=== PATIENT | male | born 1955 | race Caucasian/White ===

== ENCOUNTER → 2018-12-21 | Outpatient (CLI) | payer OTHER | LOC: M.WC 05:10 | DX: T86.821 Skin graft (allograft) (autograft) failure (principal); E11.622 Type 2 diabetes mellitus with other skin ulcer; L97.815 Non-pressure chronic ulcer of other part of right lower leg with muscle involvement without evidence of necrosis; E11.51 Type 2 diabetes mellitus with diabetic peripheral angiopathy without gangrene; I13.0 Hypertensive heart and chronic kidney disease with heart failure and stage 1 through stage 4 chronic kidney disease, or unspecified chronic kidney disease; I50.9 Heart failure, unspecified; N18.9 Chronic kidney disease, unspecified; E78.5 Hyperlipidemia, unspecified; E66.9 Obesity, unspecified; I48.91 Unspecified atrial fibrillation; F32.9 Major depressive disorder, single episode, unspecified; Z68.31 Body mass index [BMI] 31.0-31.9, adult; Z89.511 Acquired absence of right leg below knee; Z89.512 Acquired absence of left leg below knee; Z87.891 Personal history of nicotine dependence; Y83.2 Surgical operation with anastomosis, bypass or graft as the cause of abnormal reaction of the patient, or of later complication, without mention of misadventure at the time of the procedure ==

== ENCOUNTER → 2018-12-28 | Outpatient (CLI) | payer OTHER | LOC: M.WC 05:08 | DX: T86.821 Skin graft (allograft) (autograft) failure (principal); E11.622 Type 2 diabetes mellitus with other skin ulcer; L97.812 Non-pressure chronic ulcer of other part of right lower leg with fat layer exposed; E11.51 Type 2 diabetes mellitus with diabetic peripheral angiopathy without gangrene; E11.22 Type 2 diabetes mellitus with diabetic chronic kidney disease; I13.0 Hypertensive heart and chronic kidney disease with heart failure and stage 1 through stage 4 chronic kidney disease, or unspecified chronic kidney disease; I50.9 Heart failure, unspecified; N18.9 Chronic kidney disease, unspecified; E66.9 Obesity, unspecified; E78.5 Hyperlipidemia, unspecified; I48.91 Unspecified atrial fibrillation; Z87.891 Personal history of nicotine dependence; Z68.31 Body mass index [BMI] 31.0-31.9, adult; Y83.2 Surgical operation with anastomosis, bypass or graft as the cause of abnormal reaction of the patient, or of later complication, without mention of misadventure at the time of the procedure ==

== ENCOUNTER → 2019-01-04 | Outpatient (CLI) | payer OTHER | LOC: M.WC 05:06 | DX: T86.821 Skin graft (allograft) (autograft) failure (principal); E11.622 Type 2 diabetes mellitus with other skin ulcer; L97.812 Non-pressure chronic ulcer of other part of right lower leg with fat layer exposed; E11.51 Type 2 diabetes mellitus with diabetic peripheral angiopathy without gangrene; E11.22 Type 2 diabetes mellitus with diabetic chronic kidney disease; I13.0 Hypertensive heart and chronic kidney disease with heart failure and stage 1 through stage 4 chronic kidney disease, or unspecified chronic kidney disease; I50.9 Heart failure, unspecified; N18.9 Chronic kidney disease, unspecified; E66.9 Obesity, unspecified; I48.91 Unspecified atrial fibrillation; F32.9 Major depressive disorder, single episode, unspecified; Z89.512 Acquired absence of left leg below knee; Z89.511 Acquired absence of right leg below knee; Z87.891 Personal history of nicotine dependence; Y83.2 Surgical operation with anastomosis, bypass or graft as the cause of abnormal reaction of the patient, or of later complication, without mention of misadventure at the time of the procedure ==

== ENCOUNTER → 2019-01-11 | Outpatient (CLI) | payer OTHER ==
[~2019-01-11] MED LIST: ASPIRIN81 M2 PO; BASAGLAR K100 UNIT/1 SUBQ; COUMADIN 5 MG TA5 M1 PO; DESITIN57 GM TOP; DILTIAZEM 24HR120 M2 PO; FISH OIL 1,001000 M2 PO; FLORASTOR250 MG PO; GERI-TUSSI100 MG/5 M PO; GRALISE600 MG PO; HYDRALAZINE 2525 MG PO; IRON325 PO; ISOSORBIDE DINI20 M2 PO; JUVEN PACKET1 EAC1 PO; KLOR-CON 1010 MEQ PO; LASIX 40 MG TAB40 M2 PO; LIPITOR 20 MG T20 M1 PO; METAMUCIL POWD174 GM PO; MILK OF MA400 MG/5 M PO; MIRALAX17 GM PO; NOVOLOG100 UNIT/1 SUBQ; ONDANSETRON HCL4 M2 PO; OXYCODONE-APAP1 EAC4 PO; PLAVIX 75 MG TA75 M1 PO; PREDNISONE 10 M10 MG PO; SENNA LAXATIVE1 EACH PO; SIMETHICON CHEW80 M1 PO; SPIRONOLACTONE25 M1 PO; SYNTHROID25 MC1 PO; TRAMADOL 50 MG50 MG PO; UNICOMPLEX M TA1 TA1 PO; VITAMIN D2000 UNIT PO; VITAMINC500 PO; ZAROXOLYN 5MG TA5 MG PO; ZOLOFT50 MG PO; ZYRTEC10 M2 PO
== END ==
LOC: M.WC 04:35
DX: T86.821 Skin graft (allograft) (autograft) failure (principal); E11.622 Type 2 diabetes mellitus with other skin ulcer; L97.811 Non-pressure chronic ulcer of other part of right lower leg limited to breakdown of skin; E11.51 Type 2 diabetes mellitus with diabetic peripheral angiopathy without gangrene; E11.22 Type 2 diabetes mellitus with diabetic chronic kidney disease; I13.0 Hypertensive heart and chronic kidney disease with heart failure and stage 1 through stage 4 chronic kidney disease, or unspecified chronic kidney disease; I50.9 Heart failure, unspecified; E78.5 Hyperlipidemia, unspecified; N18.9 Chronic kidney disease, unspecified; I48.91 Unspecified atrial fibrillation; E66.9 Obesity, unspecified; F32.9 Major depressive disorder, single episode, unspecified; Z87.891 Personal history of nicotine dependence; Y83.2 Surgical operation with anastomosis, bypass or graft as the cause of abnormal reaction of the patient, or of later complication, without mention of misadventure at the time of the procedure

== ENCOUNTER 2019-01-15 08:42 | Emergency (ER) | payer OTHER ==
[~2019-01-15] VITALS: Ht 165.1 cm; Wt 133.9 kg
[2019-01-15] MEDS ORDERED: ISOSORBIDE DINI20 M2 PO (09:18)
[2019-01-15] MEDS ORDERED: HYDRALAZINE 2525 MG PO (09:19)
[2019-01-15] MEDS ORDERED: GRALISE600 MG PO (09:20)
[2019-01-15] MEDS ORDERED: DILTIAZEM 24HR120 M2 PO (09:21)
[2019-01-15] MEDS ORDERED: VITAMINC500 PO (09:21)
[2019-01-15] MEDS ORDERED: UNICOMPLEX M TA1 TA1 PO (09:21)
[2019-01-15] MEDS ORDERED: SENNA LAXATIVE1 EACH PO (09:22)
[2019-01-15] MEDS ORDERED: FISH OIL 1,001000 M2 PO (09:22)
[2019-01-15] MEDS ORDERED: MIRALAX17 GM PO (09:22)
[2019-01-15] MEDS ORDERED: TRAMADOL 50 MG50 MG PO (09:23)
[2019-01-15] MEDS ORDERED: PLAVIX 75 MG TA75 M1 PO (09:23)
[2019-01-15] MEDS ORDERED: VITAMIN D2000 UNIT PO (09:24)
[2019-01-15] MEDS ORDERED: ASPIRIN81 M2 PO (09:24)
[2019-01-15] MEDS ORDERED: LIPITOR 20 MG T20 M1 PO (09:26)
[2019-01-15] MEDS ORDERED: MILK OF MA400 MG/5 M PO (09:26)
[2019-01-15 09:27] LABS: ABSOLUTE BASOPHILS 0.1 thou/uL (0.0-0.2); ABSOLUTE EOSINOPHILS 0.8 thou/uL (0.0-0.7); ABSOLUTE LYMPHOCYTES 1.1 thou/uL (0.8-5.3); ABSOLUTE MONOCYTES 0.3 thou/uL (0.0-1.2); ABSOLUTE NEUTROPHILS 5.5 thou/uL (1.6-8.1); EOSINOPHILS 10.7 %; HEMATOCRIT 23.7 % (42.0-52.0); LYMPHOCYTES 13.8 %; MCH 31.1 pg (26.0-34.0); MCHC 33.9 g/dL (28.0-37.0); MCV 91.8 fL (80.0-100.0); MONOCYTES 4.3 %; MPV 7.5 fl. (7.2-11.1); NUCLEATED RBCS 0 /100WBC; PLATELET COUNT* 142 thou/uL (150-400); POLYS 70.2 %; RBC 2.58 mil/uL (4.50-6.00); RDW-CV 18.6 % (10.5-14.5); WBC 7.8 thou/uL (4.0-11.0)
[2019-01-15] MEDS ORDERED: ZOLOFT50 MG PO (09:27)
[2019-01-15] MEDS ORDERED: SYNTHROID25 MC1 PO (09:27)
[2019-01-15] MEDS ORDERED: KLOR-CON 1010 MEQ PO (09:27)
[2019-01-15 09:28] LABS: BE -2.3 mmol/L (-2 to +3); PO2 77.2 mmHg (75.0-100.0); pH 7.462 (7.340-7.450)
[2019-01-15] MEDS ORDERED: ONDANSETRON HCL4 M2 PO (09:28)
[2019-01-15] MEDS ORDERED: GERI-TUSSI100 MG/5 M PO (09:32)
[2019-01-15] MEDS ORDERED: OXYCODONE-APAP1 EAC4 PO (09:33)
[2019-01-15] MEDS ORDERED: METAMUCIL POWD174 GM PO (09:34)
[2019-01-15] MEDS ORDERED: SIMETHICON CHEW80 M1 PO (09:34)
[2019-01-15] MEDS ORDERED: FLORASTOR250 MG PO (09:34)
[2019-01-15] MEDS ORDERED: ZYRTEC10 M2 PO (09:35)
[2019-01-15] MEDS ORDERED: BASAGLAR K100 UNIT/1 SUBQ (09:36)
[2019-01-15 09:38] LABS: ANION GAP 11 mmol/L (7-16); BUN 44 mg/dL (7-18); CALCIUM 8.5 mg/dL (8.5-10.1); CHLORIDE 107 mmol/L (98-107); CO2 25 mmol/L (21-32); CREATININE 1.5 mg/dL (0.6-1.3); GLUCOSE 134 mg/dL (70-99); POTASSIUM 4.3 mmol/L (3.5-5.1); SODIUM 143 mmol/L (136-145)
[2019-01-15] MEDS ORDERED: NOVOLOG100 UNIT/1 SUBQ (09:45)
[2019-01-15] MEDS ORDERED: PREDNISONE 10 M10 MG PO (09:45)
[2019-01-15] MEDS ORDERED: SPIRONOLACTONE25 M1 PO (09:46)
[2019-01-15] MEDS ORDERED: LASIX 40 MG TAB40 M2 PO (09:46)
[2019-01-15] MEDS ORDERED: COUMADIN 5 MG TA5 M1 PO (09:46)
[2019-01-15] MEDS ORDERED: IRON325 PO (09:46)
[2019-01-15] MEDS ORDERED: ZAROXOLYN 5MG TA5 MG PO (09:47)
[2019-01-15] MEDS ORDERED: JUVEN PACKET1 EAC1 PO (09:47)
[2019-01-15 09:48] LABS: ALBUMIN 3.1 g/dL (3.4-5.0); ALKALINE PHOSPHATASE 74 U/L (46-116); NT-PRO BRAIN NAT PEPTIDE 6096 pg/mL (<300); SGOT 13 U/L (15-37); SGPT 23 U/L (30-65); TOTAL BILIRUBIN 0.8 mg/dL (<0.1-1.0); TOTAL PROTEIN 6.3 g/dL (6.4-8.2); TROPONIN-I LEVEL <0.06 ng/mL (<0.06)
[2019-01-15] MEDS ORDERED: DESITIN57 GM TOP (09:48)
[2019-01-15 10:03] LABS: URINE BILIRUBIN NEGATIVE (Negative); URINE BLOOD NEGATIVE (Negative); URINE CLARITY CLEAR; URINE COLOR YELLOW; URINE GLUCOSE-RANDOM NEGATIVE (Negative); URINE KETONES NEGATIVE (Negative); URINE LEUKOCYTES-REFLEX NEGATIVE (Negative); URINE NITRITE-REFLEX NEGATIVE (Negative); URINE PROTEIN NEGATIVE (Negative); URINE UROBILINOGEN 0.2 E.U./dl (0.2-1.0)
[2019-01-15 10:34] LABS: INR 2.7; PROTIME 27.3 Seconds (9.20-11.50)
[2019-01-15 13:07] VITALS: BP 140/70
== END 2019-01-15 13:10 | disposition home or self-care (01) ==
LOC: M.ERS 08:42
PROVIDERS: Personal Emergency Response Attendant
DX: I50.9 Heart failure, unspecified (principal); D64.9 Anemia, unspecified; R06.00 Dyspnea, unspecified; I48.91 Unspecified atrial fibrillation; Z88.1 Allergy status to other antibiotic agents; Z88.8 Allergy status to other drugs, medicaments and biological substances

== ENCOUNTER 2019-01-17 14:51 | Inpatient (IN) | payer OTHER ==
[~2019-01-17] VITALS: Ht 182.9 cm; Wt 126.8 kg
[2019-01-17 15:03] VITALS: BP 133/49
[2019-01-17 15:28] LABS: ABSOLUTE BASOPHILS 0.1 thou/uL (0.0-0.2); ABSOLUTE EOSINOPHILS 0.5 thou/uL (0.0-0.7); ABSOLUTE LYMPHOCYTES 0.5 thou/uL (0.8-5.3); ABSOLUTE MONOCYTES 0.3 thou/uL (0.0-1.2); ABSOLUTE NEUTROPHILS 6.3 thou/uL (1.6-8.1); BASOPHILS 0.7 %; EOSINOPHILS 6.5 %; HEMATOCRIT 24.8 % (42.0-52.0); HEMOGLOBIN 8.6 gm/dL (14.0-18.0); LYMPHOCYTES 6.1 %; MCHC 34.7 g/dL (28.0-37.0); MCV 92.3 fL (80.0-100.0); MONOCYTES 4.1 %; MPV 7.4 fl. (7.2-11.1); NUCLEATED RBCS 0 /100WBC; PLATELET COUNT* 165 thou/uL (150-400); POLYS 82.6 %; RBC 2.69 mil/uL (4.50-6.00); RDW-CV 18.8 % (10.5-14.5); WBC 7.6 thou/uL (4.0-11.0)
[2019-01-17 15:35] LABS: ANION GAP 9 mmol/L (7-16); BUN 42 mg/dL (7-18); CALCIUM 8.7 mg/dL (8.5-10.1); CHLORIDE 104 mmol/L (98-107); CO2 27 mmol/L (21-32); CREATININE 1.7 mg/dL (0.6-1.3); GLUCOSE 194 mg/dL (70-99); POTASSIUM 4.5 mmol/L (3.5-5.1); SODIUM 140 mmol/L (136-145)
[2019-01-17 15:38] LABS: INR 3.2
[2019-01-17 15:41] LABS: BE 1.8 mmol/L (-2 to +3); pH 7.426 (7.340-7.450)
[2019-01-17 15:44] LABS: PO2 35.3 mmHg (75.0-100.0)
[2019-01-17 15:46] LABS: ALBUMIN 3.5 g/dL (3.4-5.0); ALKALINE PHOSPHATASE 100 U/L (46-116); NT-PRO BRAIN NAT PEPTIDE 6649 pg/mL (<300); SGOT 17 U/L (15-37); SGPT 27 U/L (30-65); TOTAL BILIRUBIN 0.7 mg/dL (<0.1-1.0); TOTAL PROTEIN 7.3 g/dL (6.4-8.2); TROPONIN-I LEVEL <0.06 ng/mL (<0.06)
--- NOTE | 2019-01-17 18:01 | NUR ---
MEAL TRAY DIILIVERED TO PT=
[2019-01-17 19:46] VITALS: BP 134/67
[2019-01-17 20:02] VITALS: BP 135/61; BP 138/59
[2019-01-18 04:00] VITALS: BP 131/60
[2019-01-18 05:14] LABS: HEMATOCRIT 22.3 % (42.0-52.0); HEMOGLOBIN 7.6 gm/dL (14.0-18.0); MCH 31.3 pg (26.0-34.0); MCHC 34.1 g/dL (28.0-37.0); MCV 91.8 fL (80.0-100.0); MPV 7.7 fl. (7.2-11.1); RBC 2.42 mil/uL (4.50-6.00); RDW-CV 18.2 % (10.5-14.5); WBC 6.4 thou/uL (4.0-11.0)
[2019-01-18 05:18] LABS: PROTIME 30.8 Seconds (9.20-11.50)
[2019-01-18 05:33] LABS: CALCIUM 8.7 mg/dL (8.5-10.1); CREATININE 1.6 mg/dL (0.6-1.3); MAGNESIUM 1.9 mg/dL (1.8-2.4); POTASSIUM 4.4 mmol/L (3.5-5.1)
--- NOTE | 2019-01-18 05:47 | NUR ---
RECEIVED PT FROM ER PER CART. PT IS AWAKE AND ORIENTED X4. CARRY OUT CLERK TRACING AFIB, RATE CONTROLLED. VSS ON ROOM AIR. ADMISSION ASSESSMENT DONE AND CHARTED.ADVISED ON THE USE OF CALL LIGHT. ORIENTED ON ROOM SET UP. CALL LIGHT WITHIN REACH. HOURLY ROUNDING DONE FOR PT SAFETY.
[2019-01-18 08:00] VITALS: BP 120/59
[2019-01-18 10:06] LABS: GLYCOHEMOGLOBIN (HGB A1C) 5.7 % (4.8-5.6)
--- NOTE | 2019-01-18 10:44 | EKG ---
[place] [address] ELECTROCARDIOGRAM REPORT Name: IVAN BOOTHE Room: [address] ADM IN M.R.#: [id number] Admission: 01/17/19 Attend Phys: Jabier Riddle MD Discharge: Date of : 51 Report #: [id number] THIS REPORT FOR: //name// [facility] ED Test Date: 2019-01-17 Test Time: 15:26:16 Pat Name: IVAN BOOTHE Department: Room: [facility] Gender: M Cylinder Honer: MS : 1955 Requested By: Chika Gutierrez Order Number: [id number] MD: Arun Lopez Measurements Intervals Mitchell Rate: 66 P: NC: QRS: 89 QRSD: 102 T: -1 QT: 466 QTc: 489 Interpretive Statements Atrial fibrillation Borderline right axis deviation Low voltage, precordial leads Borderline repolarization abnormality Borderline prolonged QT interval Baseline wander in lead(s) II,III,aVF,V1,V2 No previous ECG available for comparison Electronically Signed On 01-18-2019 10:43:44 CDT by Arun Lopez [email or web address] <ELECTRONICALLY SIGNED> By: Arun Lopez MD, [facility] 01/18/19 1043 1526 1526 Arun Lopez MD, [facility] /EPI
--- NOTE | 2019-01-18 11:25 | NUR ---
Pt is A&O. Resides at home alone. Independent and active. Pt has a prothesis. Pt uses a walker or wc for mobility. Hx of HH. No hx of SNF. Supportive family. Goal is home at sc. Following.
--- NOTE | 2019-01-18 11:47 | NUR ---
RECORDS OBTAINED FROM PCP PER DR CONTI, LABS WITHIN NORMAL LIMITS, URINE RESIDUAL MEASURED AND LESS THAN 200 ML AFTER VOIDING 500. REPORTED TO DR CONTI, NO NEW ORDERS.
--- NOTE | 2019-01-18 13:12 | 2DMMODE ---
[place] [address] 2 D/M-MODE ECHOCARDIOGRAM Name: IVAN BOOTHE Room: [address] IN [facility]#: [id number] Admission: 01/17/19 Attend Phys: Jabier Riddle, Discharge: Date of : 51 Date of Service: 01/18/19 1312 Report #: [id number] THIS REPORT FOR: //name// APPROVED REPORT Study performed: 01/18/2019 09:57:51 EXAM: Comprehensive 2D, Doppler, and color-flow Echocardiogram Patient Location: In-Patient Room #: 220 Status: routine BSA: 2.44 HR: 74 bpm BP: 120/59 mmHg Rhythm: Atrial Fibrillation Other Information Study Quality: Good Indications Atrial Fibrillation 2D Dimensions IVSd: 13.13 (7-11mm) LVOT Diam: 23.54 (18-24mm) LVDd: 49.24 mm PWd: 11.74 (7-11mm) Ascending Ao: 33.99 (22-36mm) LVDs: 26.84 (25-40mm) Aortic Root: 35.95 mm Volumes Left Atrial Volume (Systole) LA ESV Index: 55.00 mL/m2 Aortic Valve AoV Peak Teddy.: 1.89 m/s AO Peak Gr.: 14.36 mmHg LVOT Max P.64 mmHg AO Mean Gr.: 7.86 mmHg LVOT Mean P.30 mmHg LVOT Max V: 1.08 m/s AO V2 VTI: 37.04 cm LVOT Mean V: 0.70 m/s JESÚS (VTI): 2.67 cm2 LVOT V1 VTI: 22.74 cm Mitral Valve MV Mean Gr.: 5.33 [place] [address] 2 D/M-MODE ECHOCARDIOGRAM Name: IVAN BOOTHE Room: [address] IN .R.#: [id number] Admission: 01/17/19 Attend Phys: Jabier Riddle, Discharge: Date of : 51 Date of Service: 01/18/19 1312 Report #: [id number] Medial E' Teddy.: 0.13 m/s Lateral E' Teddy.: 0.13 m/s Pulmonary Valve PV Peak Teddy.: 1.14 m/s PV Peak Gr.: 5.24 mmHg Tricuspid Valve RAP Estimate: 5.00 mmHg TR Peak Gr.: 62.90 mmHg RVSP: 67.00 mmHg PA Pressure: 67.00 mmHg Left Ventricle The left ventricle is normal size. There is normal LV segmental wall motion. Mild concentric left ventricular hypertrophy. Left ventricular systolic function is normal. The left ventricular ejection fraction is within the normal range. LVEF is 60-65%. This study is not technically sufficient to allow evaluation of the LV diastolic function due to atrial fibrillation. Right Ventricle Right ventricle is dilated. The right ventricular systolic function is normal. Atria Left atrium is severely dilated. Right atrium is dilated. Aortic Valve Moderate aortic valve sclerosis. No aortic regurgitation is present. There is no aortic valvular stenosis. Mitral Valve There is mitral annular calcification. Trace mitral regurgitation. No evidence of mitral valve stenosis. Tricuspid Valve The tricuspid valve is normal in structure. Mild tricuspid regurgitation. estimate pa pressure 60 mm HG Pulmonic Valve The pulmonary valve is normal in structure. Trace pulmonic regurgitation. Great Vessels The aortic root is normal in size. IVC is normal in size and collapses >50% [place] [address] 2 D/M-MODE ECHOCARDIOGRAM Name: SHYANNIVAN Room: [address] IN .R.#: [id number] Admission: 01/17/19 Attend Phys: Jabier Riddle, Discharge: Date of : 51 Date of Service: 01/18/19 1312 Report #: [id number] Pericardium There is no pericardial effusion. <Conclusion> Mild concentric left ventricular hypertrophy. LVEF is 60-65%. Left atrium is severely dilated. Moderate aortic valve sclerosis. Mild tricuspid regurgitation. estimate pa pressure 60 mm HG <ELECTRONICALLY SIGNED> By: Arun Lopez MD, [facility] 01/18/191311 11 11 Arun Lopez MD, [facility] /INF
[2019-01-18 14:42] VITALS: BP 122/64
--- NOTE | 2019-01-18 15:22 | NUR ---
Met with the pt regarding heart failure medication education. Discussion focused primarily on spironolactone and furosemide. We reviewed rationale for therapy and importance of compliance with prescribed regimen. We discussed possible side effects and potential management strategies. Left medication information sheet with patient and provided pharmacy contact information for any further questions or issues. Thank you.
[2019-01-18 15:50] VITALS: BP 130/61
--- NOTE | 2019-01-18 16:42 | NUR ---
WOUND CARE NOTE: CONSULT RECEIVED FOR POOR HEALING WOUND, RIGHT LEG (STUMP). PATIENT IS BEING SEEN IN THE [facility] BY DR. CONNOR. PATIENT PRESENTS WITH SEVERAL SKIN INTEGRITY ISSUES TO THE RIGHT LEG/STUMP. RIGHT ANTERIOR LEG: FULL THICKNESS ULCERATION MEASURING 1.2X1.9X0.2. MOIST, YELLOW WOUND BED TO APPROXIMATELY 50% OF WOUND. REMAINING 50% WITH RED, FRIABLE GRANULATION TISSUE. WOUND WAS CLEANSED WITH WOUND CLEANSER, PATTED DRY. AQUACEL AG WAS PLACED INTO WOUND BED AND COVERED WITH A BORDERED FOAM. RIGHT LATERAL LEG: FULL THICKNESS ULCERATION MEASURING 1.1X1.5X2.2 WITH A TUNNEL AT 2 O'CLOCK 2.7CM. WOUND BED IS MOIST, PINK. SMALL AMOUNT OF ADHERENT SLOUGH TISSUE NOTED. WOUND WAS CLEANSED WITH WOUND CLEANSER, PATTED DRY. PACKED WITH AQUACEL AG AND SECURED WITH A BORDERED FOAM. RIGHT MEDIAL LEG: TWO LESIONS, PATIENT STATES THEY WERE FROM HIS STUMP MELTER SUPERVISOR OXYGEN FURNACE THAT DUG INTO HIM. PROXIMAL LESION MEASURES 0.5X1.7X0.1, DISTAL LESION MEASURES 0.5X1.5X0.1. MOIST, RED, YELLOW WOUND BEDS. SHAKEEL-WOUNDS WITH NEW EPITHELIUM, HEALING WELL. AFTER CLEANSING, APPLIED BORDERED FOAM. SECURED ALL WITH KAMALA WRAP. ASSISTED PATIENT'S RN WITH BED CHANGE. EDUCATED PATIENT ON FINDINGS AND THAT HE WOULD CONTINUE TO NEED TO FOLLOW UP IN WOUND CENTER, PATIENT COMMUNICATES UNDERSTANDING. RECOMMEND ENCOURAGE GOOD NUTRTION/HYDRATION FOR WOUND HEALING TIGHT BLOOD GLUCOSE CONTROL FOLLOW UP IN WOUND CENTER UPON DISCHARGE
--- NOTE | 2019-01-18 18:26 | NUR ---
PATIENT PROGRESSED WELL TOWARDS GOALS. WOUNDS AND DRESSINGS CHANGED THIS SHIFT. BLOOD SUGARS UNDER CONTROL THIS SHIFT. ECHO COMPLETED THIS SHIFT. FLUID RESTRICTION TOLERATED THIS SHIFT. ON ROOM AIR. BED IN LOWEST POSTION, CALL LIGHT IN REACH.
[2019-01-18 20:00] VITALS: BP 136/64
[2019-01-19 00:12] VITALS: BP 130/53
[2019-01-19 04:00] VITALS: BP 131/71
--- NOTE | 2019-01-19 04:34 | NUR ---
ASSUMED PT CARE APPROX 1930. PT IS AWAKE AND ORIENTED X4. VSS ON ROOM AIR. ENVIRONMENTAL PROTECTION GEOLOGIST IN PLACE TRACING AFIB, RATE CONTROLLED. PT DENIES PAIN AND DISCOMFORT. POSITION CHANGES DONE Q2H. PT KEPT CLEAN AND DRY. REMINDED ON 2L/DAY FLUID RESTRICTION, PT COMMUNICATED UNDERSTANDING. CALL LIGHT WITHIN REACH. FALL PRECAUTIONS IN PLACE. HOURLY ROUNDING DONE FOR PT SAFETY.
[2019-01-19 05:02] LABS: HEMATOCRIT 22.8 % (42.0-52.0); HEMOGLOBIN 7.9 gm/dL (14.0-18.0)
[2019-01-19 05:12] LABS: CALCIUM 9.2 mg/dL (8.5-10.1); CREATININE 1.5 mg/dL (0.6-1.3); MAGNESIUM 1.8 mg/dL (1.8-2.4); POTASSIUM 3.7 mmol/L (3.5-5.1)
[2019-01-19 05:21] LABS: INR 2.1; PROTIME 21.4 Seconds (9.20-11.50)
[2019-01-19 05:33] LABS: % SATURATION 23 % (20-39); IRON 59 ug/dL (50-175)
[2019-01-19 08:00] VITALS: BP 135/63
[2019-01-19 10:11] LABS: IgA 241 mg/dL (61-437); IgG 873 mg/dL (700-1600); IgM 85 mg/dL (20-172)
[2019-01-19 11:58] VITALS: BP 135/63
[2019-01-19 15:52] LABS: URINE BILIRUBIN NEGATIVE (Negative); URINE BLOOD NEGATIVE (Negative); URINE CLARITY CLEAR; URINE COLOR YELLOW; URINE GLUCOSE-RANDOM NEGATIVE (Negative); URINE KETONES NEGATIVE (Negative); URINE LEUKOCYTES-REFLEX NEGATIVE (Negative); URINE NITRITE-REFLEX NEGATIVE (Negative); URINE PROTEIN NEGATIVE (Negative); URINE SPECIFIC GRAVITY <= 1.005 (1.005-1.030); URINE UROBILINOGEN 0.2 E.U./dl (0.2-1.0)
[2019-01-19 16:43] VITALS: BP 140/69
--- NOTE | 2019-01-19 18:05 | CON ---
[address] [address] CONSULTATION Name: IVAN BOOTHE Room: [address] IN M.R.#: [id number] Admission: 01/17/19 Attend Phys: Jabier Riddle MD Discharge: Date of : 51 Report #: [id number] THIS REPORT FOR: //name// CC: Valerie Escamilla DATE OF SERVICE: 01/18/2019 TYPE OF REPORT: Cardiology consultation. HISTORY OF PRESENT ILLNESS: The patient is a 63-year-old single white male who I was asked to see in the hospital today after he complained of being short of breath. The patient has an extensive past medical history. He has a long history of diabetes, hypertension, and hyperlipidemia. He apparently developed atrial fibrillation in the past and was cardioverted by Dr. Max in 2010. However, he had recurrent AFib and decided to aim for rate control and chronic anticoagulate the patient with warfarin. He has had no bleeding problems on warfarin. He has developed ulcers on his feet. He denies history of PAD and needs for stents or bypass surgery. He eventually required left pakvg-kze-bxuq amputation in 2016 and right hhojy-xks-klvz amputation in November of this year at [facility]. He is now at the [facility]. He has been in a wheelchair. Recently, he noticed increasing shortness of breath. Denied fever, cough or bleeding. He also felt that his abdomen, legs and face were swollen. He came into the hospital yesterday. He has had weight gain. He is felt to have heart failure and was diuresed. I was asked to see him for further evaluation and treatment. He denies history of myocardial infarction or chest pain. He apparently has had a nuclear stress test in the past. He has also had an echocardiogram. He denied any recent palpitations or syncope. PAST MEDICAL HISTORY: He has had a tonsillectomy, diabetes, hypertension, hyperlipidemia and he has sleep apnea. MEDICATIONS: Consists of the following: He is on warfarin, aspirin, Lipitor, Plavix, diltiazem, Lasix, Neurontin, hydralazine, insulin and isosorbide. ALLERGIES: He has an allergy to AUGMENTIN and AMOXICILLIN. FAMILY HISTORY: His father of heart attack. SOCIAL HISTORY: Single. 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 No longer working because of disability. He quit smoking years ago. No alcohol abuse. Lives in [place]. REVIEW OF SYSTEMS: He has had no history of stroke, asthma, peptic ulcer disease, liver disease, kidney disease, cancer or [place] [address] CONSULTATION Name: IVAN BOOTHE Room: [address] IN ..#: [id number] Admission: 01/17/19 Attend Phys: Jabier Riddle MD Discharge: Date of : 51 Report #: [id number] wear glasses. No chronic skin condition. PHYSICAL EXAMINATION: GENERAL: Revealed a middle-aged male, lying in bed. He appeared in no distress. VITAL SIGNS: He had a blood pressure of 120/60, pulse 70 and he is afebrile. HEENT: He is anicteric. Conjunctivae pink. Mucous membranes appear dry. NECK: Veins do not appear distended. No carotid bruits. CHEST: Clear to auscultation. CARDIOVASCULAR: Irregular rhythm. No significant murmur. ABDOMEN: Obese. EXTREMITIES: Had no pitting edema. SKIN: Cool and dry. NEUROLOGICAL: Nonfocal. LYMPHATIC: No adenopathy. MUSCULOSKELETAL: No joint effusion. RADIOLOGICAL DATA: His ECG on admission showed atrial fibrillation with controlled ventricular response rate. His workup so far, he had a portable chest x-ray on admission that showed cardiomegaly, otherwise unremarkable. LABORATORY DATA: Sodium 142, BUN 41 and creatinine 1.6 and it was 1.7 yesterday. Liver function studies were normal. Troponin 0.06. BNP 6649. TSH 3.9. INR is 3.0. White blood cell count 6.4 and hemoglobin 7.6 and it was 8.0 on admission. IMPRESSION RECOMMENDATIONS: 1. Atrial fibrillation. Rate controlled. I would continue chronic anticoagulation, maintain INR of 2-3. 2. Bilateral amputee. 3. Diabetes. 4. Hypertension. 5. Hyperlipidemia. 6. Sleep apnea. 7. Obesity. 8. Anemia. No history of bleeding. <ELECTRONICALLY SIGNED> By: Arun Lopez MD, [facility] 01/19/19 1805 1224 [id number] Lopez MD, [facility] /nt
--- NOTE | 2019-01-19 19:45 | NUR ---
RECEIVED REPORT. ASSUMED CARE OF PT AROUND O730. PT A&O X4. VSS. INSTRUCTIONAL SUPPORT SERVICES DIRECTOR IN PLACE TRACING AFIB WITH NO CHANGES THIS SHIFT, RATE CONTROLLED. AM ASSESSMENT AND VITALS COMPLETED CHARTED. IV INTACT. PT HAD GOOD URINE OUTPUT THIS SHIFT, SEE CHARTING. FLUID RESTRICTION MAINTAINED. TOLERATING DIET. PT ABLE TO TRANSFER TO WHEELCHAIR WITH SLIDING BOARD AND ASSIST X1. MEDS PER EMAR. PT CURRENTLY WATCHING TV IN WHEELCHAIR. FALL PRECAUTIONS IN PLACE, CALL LIGHT IS WITHIN REACH. HOURLY ROUNDING PERFORMED.
[2019-01-19 20:00] VITALS: BP 133/60
[2019-01-20] VITALS (7 sets, daily range): BP systolic 102–135; BP diastolic 47–61
--- NOTE | 2019-01-20 03:01 | NUR ---
PT ALERT ORIENTED. UP TO CHAIR AND BED WITH SLIDE BOARD. TELEMETRY SHOWS AFIB. PT WITHIN 2000 ML FR. STUMP SHRINKERS ON OVER ANTONI AKA. DENEIS PAIN
[2019-01-20 05:12] LABS: HEMATOCRIT 23.8 % (42.0-52.0); HEMOGLOBIN 8.2 gm/dL (14.0-18.0); MCH 31.1 pg (26.0-34.0); MCHC 34.6 g/dL (28.0-37.0); MCV 89.8 fL (80.0-100.0); MPV 7.4 fl. (7.2-11.1); RBC 2.65 mil/uL (4.50-6.00); RDW-CV 18.3 % (10.5-14.5); WBC 6.8 thou/uL (4.0-11.0)
[2019-01-20 05:19] LABS: INR 1.6
[2019-01-20 05:25] LABS: CALCIUM 9.1 mg/dL (8.5-10.1); CREATININE 1.7 mg/dL (0.6-1.3); POTASSIUM 3.7 mmol/L (3.5-5.1)
--- NOTE | 2019-01-20 09:49 | NUR ---
ASSUMED CARE OF PT THIS AM AROUND 0715- CALL OR CONTACT CENTRE TEAM LEADER IN PLACE ORDERED, TRACING A-FIB/CONTROLLED- UPON ASSESSMENT PT NOTED TO BE RESTING IN BED, WATCHING TV- PT A&O X4- CONTINENT OF BOWEL AND BLADDER- EXT ASSIST WITH SLID BOARD FOR TRANSFERS- Q 2 HOUR TURNS INDICATED- LCTA, RESP EVEN AND UN-LABORED- VSS, O2 SAT 97% ON RA- ABD SOFT/ROUND/OBESE, BS X 4 QUADS- PT REPORTS BM THIS AM-GOOD PO INTAKE NOTED THIS AM WITH BREAKFAST-BE MONITORED ORDERED, SCHEDUELD AND SSI INDICATED- IV NOTED TO RIGHT HAND INTACT AND SL-ANTONI BKA'S NOTED, RIGHT STUMP NOTED WITH 3 DRESSING C/D/I WITH NO NEED TO CHANGE THIS AM- DRIED SCABS NOTED SHAYNE TO LEFT STUMP- PT DENIES ANY C/O PAIN/DISCOMFORT AT THIS TIME- CALL LIGHT AND PERSONAL BELONGINGS WITH IN REACH- HOURLY ROUNDS IN PLACE R/T SAFETY/NEEDS- ALL NEEDS MET AT THIS TIME-WCTM
--- NOTE | 2019-01-20 10:48 | NUR ---
SHE spoke with Page at [facility], Pt is actually a LTC resident there, but has been receiving skilled services. SHE faxed referral and informed that Pt may be ready to dc over the weekend. Page will initiate insurance auth for continued skilled, SHE will fax OT eval once completed. Following.
[2019-01-20] MEDS ORDERED: LASIX 40 MG TAB40 M2 PO (12:56)
[2019-01-20] MEDS ORDERED: GRALISE600 MG PO (13:21)
--- NOTE | 2019-01-20 14:46 | NUR ---
Pt discharging back to [facility] today, [facility] working on skilled. [facility] to potato picker at 4pm. Faxed dc orders. Chart copied. Nurse report number is [phone]. Updated Pt's sister
[2019-01-20 16:06] LABS: KAPPA FREE LIGHT CHAINS 40.6 mg/L (3.3-19.4); LAMBDA FREE LIGHT CHAINS 30.5 mg/L (5.7-26.3)
--- NOTE | 2019-01-20 18:28 | NUR ---
PT JOSE DE JESUS RESTING IN BED, WATCHING TV- TELE MONITOR D/C'D THIS SHIFT- D/C ORDERS NOTED, BUT ON HOLD PENDING INSURANCE AUTHORIZATION- DRESSING TO RIGHT STUMP CHANGED THIS SHIFT ORDERED, WITH PICS OBTAINED AND PLACED ON CHART FOR VIEWING- GOOD PO INTAKE NOTED WITH MEALS, BE MONITORED WITH SCHEDULED INSULIN PRESCIBED THIS SHIFT- PT WORKING WITH THERAPIES PRESCIBED- DENIES ANY C/O PAIN/DISCOMFORT AT THIS TIME- MAKES NEEDS KNOWN- ALL NEEDS MET AT THIS TIME-WCTM
[2019-01-21 04:00] VITALS: BP 130/60
[2019-01-21 04:52] LABS: INR 1.4; PROTIME 14.7 Seconds (9.20-11.50)
--- NOTE | 2019-01-21 06:30 | NUR ---
NO CHANGES IN PATIENT STATUS OVERNIGHT. VSS ON ROOM AIR. DENIES PAIN AND DISCOMFORT. PATIENT ANTICIPATING DISCHARGE TODAY. PATIENT COMPLIANT WITH FLUID RESTRICTION AND ACCURATE OUTPUTS, VOIDING PER URINAL. HOURLY ROUNDING OBSERVED. CALL LIGHT WITHIN REACH
[2019-01-21 08:27] VITALS: BP 107/51
--- NOTE | 2019-01-21 09:17 | NUR ---
ASSUMED CARE OF PT THIS AM AROUND 714- MS STATUS IN PLACE AND MAINTAINED INDICATED- UPON ASSESSMENT PT NOTED TO BE RESTING IN BED, WATCHING TV- PT A&O X4- CONTINENT OF BOWEL AND BLADDER- BED REST IN PLACE WITH Q 2 HOUR TURNS- LCTA, RESP EVEN AND UN-LABORED- VSS, O2 SAT 96% ON RA- ABD SOFT/ROUND/NON-TENDER, BS X 4 QUADS- PT REPORTS LAST BM 01/20/19- IV NOTED TO RIGHT HAND INTACT AND SL- GOOD PO INTAKE NOTED THIS AM WITH BREAKFAST, BS MONITORED ORDERED, SSI AND SCHEDULED INSULIN PRESCIBED- ANTONI BKA'S NOTED, RL WITH KAMALA WRAP IN PLACE, LL WITH STUMP TIRE MECHANIC IN PLACE- PT DENIES ANY C/O PAIN/DISCOMFORT AT THIS TIME- CALL LIGHT AND PERSONAL BELONGINGS WITH IN REACH- PT MAKES NEEDS KNOWN- ALL NEEDS MET AT THIS TIME-WCTM
[2019-01-21 12:35] VITALS: BP 124/76
--- NOTE | 2019-01-21 12:38 | NUR ---
Following for d/c planning needs. Contacted [facility] liaison and she has not heard back from [employer]. Liaison said she had called [employer] this morning and left a message. Will remain available to assist as needed.
--- NOTE | 2019-01-21 16:30 | NUR ---
PT CURRENLTY RESTING IN BED, WATCHING TV-M/S STATUS IN PLACE AND MAINTAINED INDICATED- IV TO RIGHT HAND INTACT AND SL- GOOD PO INTAKE NOTED THIS SHIFT WITH MEALS, BS MONITORED WITH INSULIN PRESCIBED- DRESSING TO RL STUMP NOTED INTACT WITH NO VIAIBLE DRAINAGE NOTED-D/C STILL PENDING INSURANCE AUTH- PT DENIES ANY C/O PAIN/DISCOMFORT AT THIS TIME- CALL LIGHT AND PERSONAL BELONGINGS WITH IN REACH- PT MAKES NEEDS KNOWN- ALL NEEDS MET AT THIS TIME-WCTM
[2019-01-21 16:33] VITALS: BP 127/57
[2019-01-21 19:45] VITALS: BP 128/54
[2019-01-22] VITALS: BP 119/54
[2019-01-22 05:00] LABS: INR 1.4; PROTIME 14.6 Seconds (9.20-11.50)
--- NOTE | 2019-01-22 06:28 | NUR ---
PATIENT PROGRESSING TOWARDS GOALS: VSS ON ROOM AIR. PATIENT RESTED WELL THIS SHIFT WITH NO C/O PAIN OR DISCOMFORT. DRESSING TO RIGHT STUMP CHANGED. PATIENT PENDING INSURANCE AUTH FOR DISCHARGE. CALL LIGHT WITHIN REACH
[2019-01-22 08:03] VITALS: BP 134/60
[2019-01-22 17:00] VITALS: BP 162/60
--- NOTE | 2019-01-22 17:54 | NUR ---
PATIENT TRANSFERED TO ROOM 307 THIS AM. RECEIVED REPORT FROM YEMI. PATIENT ALERT AND ORIENTED AND HAVING NO C/O PAIN OR NAUSEA. PATIENT DENIED PAIN OR NAUSEA ALL DAY. VOIDING VIA URINAL WITHOUT DIFFICULTY. NO C/O SOA. STUMP FRATERNITY HOUSE COOK IN PLACE OVER LEFT LOWER EXTREMITY STUMP. RIGHT LOWER EXTREMITY STUMP HAS [address] PLEASANT AND COOPERATIVE THROUGHOUT SHIFT. PROGRESSING TOWARD DISCHARGE GOAL. PATIENT USING CALL LIGHT TODAY WITHOUT DIFFICULTY.
[2019-01-22 20:00] VITALS: BP 113/53
--- NOTE | 2019-01-23 04:57 | NUR ---
ASSUMED CARE OF PT AT 1900 PT ALETRT AND ORIENTED X4 VS AND ASSESSMENT STABLE. PT DENIED ANY COMPLAINTS AND SLEPT THRIUGH THE NIGHT. WILL CONTINUE PLAN OF CARE.
[2019-01-23 08:00] VITALS: BP 127/47
--- NOTE | 2019-01-23 10:10 | NUR ---
DISCUSSED WITH . SHE SAID PT.WAS MEDICALLY STABLE FOR DISCHARGE. LEFT FOR [facility] TO SEE ABOUT PENDING AUTH.
[2019-01-23] MEDS ORDERED: OXYCODONE-APAP1 EAC4 PO (11:54)
[2019-01-23] MEDS ORDERED: NEURONTIN600 MG PO (11:54)
[2019-01-23] MEDS ORDERED: TRAMADOL 50 MG50 MG PO (11:54)
[2019-01-23] MEDS ORDERED: GABAPENTIN 100100 MG PO (11:54)
[2019-01-23] MEDS ORDERED: ZAROXOLYN 5MG TA5 MG PO (11:58)
--- NOTE | 2019-01-23 15:03 | NUR ---
PT.AND ASKING ABOUT INSURANCE AUTH FOR SKILLED AT [facility]. TOLD THEM [facility] CALLED EARLIER AND SAID THE COMMUNITY SUPPORT WORKER AT INSURANCE SAID SHE WAS WORKING ON IT. INFORMED OF THEM OF THIS. DISCUSSED SKILLED BECAUSE OF HIS CHF. CALLED [facility] AGAIN AND SHE SAID SHE HAS NOT HEARD ANYTHING BACK FROM INSURANCE YET. INFORMED PT.AND .
--- NOTE | 2019-01-23 15:14 | NUR ---
PT. NOT SEEN DUE TO OT SCHEDULE CONFLICT
--- NOTE | 2019-01-23 16:59 | NUR ---
[facility] CALLED AND SAID INSURANCE DENIED SKILLED FOR PT. COULD DO PEER TO PEER OR THEY CAN TAKE BACK LTC AND STILL MONITOR HIS CHF-WEIGH DAILY,MONITOR FLUID RESTRICTION,ETC. WOULD LIKE TO SEND BACK LTC. NOTIFIED SIMON FRIAS ON 3W. SHE WILL GIVE SIMON KUMAR INFORMATION. PT.DID NOT ANSWER ROOM PHONE. CALLED HIS CELL AND LEFT A MESSAGE OF ABOVE. [employer] [facility] WILL PICK HIM UP AT 6:30. CHART COPIED. JOSÉ WILL CALL REPORT TO [phone].
--- NOTE | 2019-01-23 17:05 | NUR ---
FAXED DISCHARGE SUMMARY TO [facility] [phone].
[2019-01-23 17:10] VITALS: BP 118/50
--- NOTE | 2019-01-23 18:45 | NUR ---
DISCHARGE NOTE - IV REMOVED. REPORT CALLED TO ZAYDA-JORJE DIAZ RN. ALL BELONGINGS SENT WITH PT.
--- NOTE | 2019-01-24 08:35 | CON ---
[facility] [address] [place] [address] CONSULTATION Name: IVAN BOOTHE Room: [address] IN .R.#: [id number] Admission: 01/17/19 Attend Phys: Jabier Riddle MD Discharge: 01/23/19 Date of : 51 Report #: [id number] THIS REPORT FOR: //name// CC: Jabier Escamilla DATE OF SERVICE: 01/18/2019 CONSULTING PHYSICIAN: Jabier Riddle M.D. REASON FOR NEPHROLOGY CONSULTATION: Possible chronic kidney disease with fluid overload. REASON FOR ADMISSION: Shortness of breath. HISTORY OF PRESENT ILLNESS: This is a 63-year-old male who lives at the [facility] with a past medical history of atrial fibrillation, possible chronic kidney disease, came in with a weight gain and shortness of breath. He has a history of atrial fibrillation. He is not aware of any history of congestive heart failure. His creatinine has been running 1.5-1.7 here in the hospital. I do not have a past creatinine in our EMR over here. He did go to [facility] last year and we are trying to get records from there. He does have a history of insulin-dependent diabetes, hypertension as well. He takes Metolazone, it seems like 5 mg a day at home; Aldactone 25 mg twice a day, potassium chloride as well as Lasix 40 mg once a day. Here, he has been started on Lasix 80 mg IV twice a day in addition to his other water pills and his oxygenation has improved. He is actually currently on room air. Echocardiogram is also being checked here. He is not on a fluid restriction at home, but does try to follow his sodium intake and does not take any NSAIDs. We do not have an ejection fraction on him yet. He is a bilateral amputee, below knee amputation, and his prosthesis was not fitting because of leg edema and that was also one of the reasons why he had to be brought to the hospital. ALLERGIES: CLAVULANIC ACID AND AMOXICILLIN. REVIEW OF SYSTEMS: As mentioned in history of present illness, otherwise negative. HOME MEDICATIONS: Include isosorbide dinitrate, hydralazine, gabapentin, diltiazem, ascorbic acid, multivitamin, polyethylene glycol, MiraLax, fish oil, senna laxative, tramadol, clopidogrel, vitamin D3, aspirin, atorvastatin, sertraline, potassium chloride 10 mEq once a day, levothyroxine, ondansetron, guaifenesin, oxycodone, Metamucil powder, simethicone, saccharomyces, cetirizine, insulin glargine, prednisone, insulin aspart, ferrous sulfate, spironolactone 25 mg twice a day, metolazone 5 mg once a day, Lasix 40 mg once a day, zinc oxide, and magnesium hydroxide [place] [address] CONSULTATION Name: IVAN BOOTHE Room: [address]#: [id number] Admission: 01/17/19 Attend Phys: Jabier Riddle MD Discharge: 01/23/19 Date of : 51 Report #: [id number] PAST MEDICAL AND SURGICAL HISTORY: Includes diabetes type 2, chronic kidney disease stage 3, baseline creatinine not known yet, anemia, bilateral BKAs, and atrial fibrillation. FAMILY HISTORY: No history of any kidney disease in the family. SOCIAL HISTORY: He is in the [facility]. He does not smoke or take alcohol or use illicit drugs. He has very supportive sister. PHYSICAL EXAMINATION: VITAL SIGNS: Blood pressure is 120/59, pulse rate is 75, temperature is 37.1, respiratory rate is 18, and his pulse ox is 93% on room air. GENERAL: He is awake, alert, oriented x 3. HEAD AND EYES: Atraumatic, normocephalic. Mucous membranes are moist. NECK: There is no JVD. CHEST: No crackles, diminished breath sounds posteriorly. CARDIOVASCULAR: S1, S2 normal. No murmurs heard. ABDOMEN: Soft, nondistended, nontender. EXTREMITIES: Lower extremities, he has bilateral below knee amputation and bilateral 2+ edema. NEUROLOGICAL: Gross neurological function is intact. PSYCHIATRIC: Mood and affect seems to be normal. LABORATORY DATA: Hemoglobin is 7.6 and platelet count is 149. Sodium is 142, potassium is 4.4, creatinine is 1.6, and BUN is 41. Other labs were reviewed. IMAGING: Chest x-ray was reviewed. ASSESSMENT: 1. Chronic kidney disease, likely stage III. We will try to find out his baseline creatinine. Creatinine has been running 1.5-1.7 here. Chronic kidney disease is likely because of diabetes, hypertension and vascular disease. UA and renal ultrasound and serum immunofixation, serum kappa to lambda light chain ratio will be checked. 2. Shortness of breath, fluid overload. Echocardiogram is being checked. He has a history of atrial fibrillation. 3. Anemia, rule out iron deficiency. 4. History of diabetes type 2. Internal Medicine is managing. 5. Hypertension. Currently blood pressure is controlled. 6. History of peripheral neuropathy. PLAN: 1. While dictating my Nephrology consult, I obtained his records and it seems like his baseline creatinine was 1.4-1.7 last year as well. The creatinine is pretty much at his baseline. He is currently being diuresed with Lasix 80 mg IV [facility] [address] [place] [address] CONSULTATION Name: IVAN BOOTHE Leyla Room: [address] IN [facility].#: [id number] Admission: 01/17/19 Attend Phys: Jabier Riddle MD Discharge: 01/23/19 Date of : 51 Report #: [id number] twice a day along with metolazone 5 mg a day and Aldactone 25 mg twice a day. Echocardiogram will be followed. 2. Maintain I's and O's, check a bladder scan. We will check renal ultrasound, UA, serum immunofixation, serum kappa to lambda light chain ratio. 3. Maintain 2 gram sodium diet, fluid restriction. Avoid NSAIDs and other nephrotoxic agents. 4. Decrease gabapentin to 600 mg twice a day with 200 mg in the afternoon because of decreased renal function. 5. Monitor his kidney function while he is being diuresed. We will continue to follow along with you. Discussed with the patient and his sister as well as the patient's nurse. <ELECTRONICALLY SIGNED> By: Sofía Varela MD 01/24/19 0835 0936 Kailash Varela MD /nt
--- NOTE | 2019-01-24 13:26 | NUR ---
SIMON GUPTA CALLED [facility] STATING THEY DID NOT GET WOUND CARE ORDERS FOR PT. CM PRINTED OFF WOUND CARE ORDERS FROM SIMON MONROY FOR R MEDIAL,LATERAL AND ANTERIOR STUMP AND FAXED ORDERS, ALONG WITH FR ORDER AND DAILY WT.ORDER TO CANDY/ANDRES [phone].
== END 2019-01-23 18:45 | DRG 291 ==
LOC: M.ERS 14:51 → M.TBA-ER 16:21 → M.2W 16:21 → M.3W 01-22 07:17
PROVIDERS: Internal Medicine; Internal Medicine Cardiovascular Disease; Personal Emergency Response Attendant; ADMIT Internal Medicine
DX: I13.0 Hypertensive heart and chronic kidney disease with heart failure and stage 1 through stage 4 chronic kidney disease, or unspecified chronic kidney disease (principal); J96.01 Acute respiratory failure with hypoxia; I50.43 Acute on chronic combined systolic (congestive) and diastolic (congestive) heart failure; E44.0 Moderate protein-calorie malnutrition; N18.3 Chronic kidney disease, stage 3 (moderate); E11.22 Type 2 diabetes mellitus with diabetic chronic kidney disease; E11.42 Type 2 diabetes mellitus with diabetic polyneuropathy; D64.9 Anemia, unspecified; E78.5 Hyperlipidemia, unspecified; E66.9 Obesity, unspecified; Z68.37 Body mass index [BMI] 37.0-37.9, adult; E03.9 Hypothyroidism, unspecified; I27.20 Pulmonary hypertension, unspecified; I48.2 Chronic atrial fibrillation; G47.33 Obstructive sleep apnea (adult) (pediatric); Z89.512 Acquired absence of left leg below knee; Z89.511 Acquired absence of right leg below knee; Z90.89 Acquired absence of other organs; Z87.891 Personal history of nicotine dependence; Z82.49 Family history of ischemic heart disease and other diseases of the circulatory system; Z88.8 Allergy status to other drugs, medicaments and biological substances; Z79.899 Other long term (current) drug therapy; Z79.82 Long term (current) use of aspirin; Z79.4 Long term (current) use of insulin; Z79.01 Long term (current) use of anticoagulants

== ENCOUNTER → 2019-02-01 | Outpatient (CLI) | payer OTHER ==
[~2019-02-01] MED LIST changes: +GABAPENTIN 100100 MG PO; +NEURONTIN600 MG PO
== END ==
LOC: M.WC 01-25 08:00
DX: T86.821 Skin graft (allograft) (autograft) failure (principal); E11.622 Type 2 diabetes mellitus with other skin ulcer; L97.812 Non-pressure chronic ulcer of other part of right lower leg with fat layer exposed; S81.811D Laceration without foreign body, right lower leg, subsequent encounter; E11.51 Type 2 diabetes mellitus with diabetic peripheral angiopathy without gangrene; E11.22 Type 2 diabetes mellitus with diabetic chronic kidney disease; I13.0 Hypertensive heart and chronic kidney disease with heart failure and stage 1 through stage 4 chronic kidney disease, or unspecified chronic kidney disease; I50.9 Heart failure, unspecified; N18.9 Chronic kidney disease, unspecified; E78.5 Hyperlipidemia, unspecified; E66.9 Obesity, unspecified; I48.91 Unspecified atrial fibrillation; F32.9 Major depressive disorder, single episode, unspecified; Z87.891 Personal history of nicotine dependence; X58.XXXD Exposure to other specified factors, subsequent encounter; Y83.2 Surgical operation with anastomosis, bypass or graft as the cause of abnormal reaction of the patient, or of later complication, without mention of misadventure at the time of the procedure

== ENCOUNTER 2019-02-08 08:05 | Inpatient (IN) | payer OTHER ==
[~2019-02-08] VITALS: Ht 121.9 cm; Wt 120.5 kg
[2019-02-08 08:07] VITALS: BP 142/69
[2019-02-08 08:25] LABS: ABSOLUTE BASOPHILS 0.1 thou/uL (0.0-0.2); ABSOLUTE EOSINOPHILS 0.4 thou/uL (0.0-0.7); ABSOLUTE LYMPHOCYTES 0.7 thou/uL (0.8-5.3); ABSOLUTE MONOCYTES 0.9 thou/uL (0.0-1.2); ABSOLUTE NEUTROPHILS 7.9 thou/uL (1.6-8.1); EOSINOPHILS 3.8 %; HEMOGLOBIN 10.1 gm/dL (14.0-18.0); MCH 31.5 pg (26.0-34.0); MCHC 34.7 g/dL (28.0-37.0); MCV 90.6 fL (80.0-100.0); MPV 7.5 fl. (7.2-11.1); NUCLEATED RBCS 0 /100WBC; PLATELET COUNT* 209 thou/uL (150-400); POLYS 79.2 %; RDW-CV 16.3 % (10.5-14.5); WBC 9.9 thou/uL (4.0-11.0)
[2019-02-08] MEDS ORDERED: KLOR-CON 1010 MEQ PO (08:25)
[2019-02-08 08:31] LABS: BE -4.5 mmol/L (-2 to +3); PCO2 38.9 mmHg (35.0-45.0); pH 7.345 (7.340-7.450)
[2019-02-08 08:33] LABS: ANION GAP 13 mmol/L (7-16); BUN 48 mg/dL (7-18); CHLORIDE 101 mmol/L (98-107); CO2 24 mmol/L (21-32); CREATININE 1.8 mg/dL (0.6-1.3); POTASSIUM 4.6 mmol/L (3.5-5.1); SODIUM 138 mmol/L (136-145)
[2019-02-08 08:34] LABS: CALCIUM 8.9 mg/dL (8.5-10.1); GLUCOSE 155 mg/dL (70-99)
[2019-02-08 08:34] LABS: PO2 40.6 mmHg (75.0-100.0)
[2019-02-08 08:42] LABS: INR 1.7; PROTIME 16.9 Seconds (9.20-11.50)
[2019-02-08 08:44] LABS: ALBUMIN 3.6 g/dL (3.4-5.0); ALKALINE PHOSPHATASE 75 U/L (46-116); LIPASE 104 U/L (73-393); NT-PRO BRAIN NAT PEPTIDE 14252 pg/mL (<300); SGOT 22 U/L (15-37); SGPT 26 U/L (30-65); TOTAL BILIRUBIN 0.6 mg/dL (<0.1-1.0); TOTAL PROTEIN 7.5 g/dL (6.4-8.2); TROPONIN-I LEVEL <0.06 ng/mL (<0.06)
[2019-02-08 09:51] LABS: URINE BILIRUBIN NEGATIVE (Negative); URINE BLOOD NEGATIVE (Negative); URINE CLARITY CLEAR; URINE COLOR YELLOW; URINE GLUCOSE-RANDOM NEGATIVE (Negative); URINE KETONES NEGATIVE (Negative); URINE LEUKOCYTES-REFLEX NEGATIVE (Negative); URINE NITRITE-REFLEX NEGATIVE (Negative); URINE PROTEIN 1+ (Negative); URINE UROBILINOGEN 0.2 E.U./dl (0.2-1.0)
--- NOTE | 2019-02-08 11:07 | NUR ---
PT ABLE TO KNOW WHEN HE HAS TO URINATE, ASKS FOR ASSISTANCE. PT PANTS HAVE BEEN REMOVED AND PT CLEANED WITH NEW BLANKETS
[2019-02-08 14:34] VITALS: BP 123/65
--- NOTE | 2019-02-08 15:37 | EKG ---
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: MS : 1955 Requested By: Dg Rosas Order Number: [id number] MD: Arun Lopez Measurements Intervals Hodges Rate: 65 P: NH: QRS: 86 QRSD: 96 T: -17 QT: 434 QTc: 452 Interpretive Statements Atrial fibrillation Borderline right axis deviation Borderline repolarization abnormality Compared to ECG 01/17/2019 15:26:16 No significant changes Electronically Signed On 02-08-2019 15:37:29 CDT by Arun Lopez [email or web address] <ELECTRONICALLY SIGNED> By: Arun Lopez MD, [facility] 02/08/19 1537 5 5 Arun Lopez MD, [facility] /EPI
[2019-02-08 16:04] VITALS: BP 135/52
--- NOTE | 2019-02-08 18:35 | NUR ---
PATIENT ADMITTED FROM ED DENIES SOA. WOUND CARE NOTIFIED PT APPEARS COMFORTABLE AT THIS TIME.
[2019-02-08 20:00] VITALS: BP 139/58
[2019-02-08 23:53] VITALS: BP 150/64
[2019-02-09 04:00] VITALS: BP 168/74
[2019-02-09 04:53] LABS: HEMATOCRIT 28.2 % (42.0-52.0); HEMOGLOBIN 9.6 gm/dL (14.0-18.0); MCH 30.5 pg (26.0-34.0); MCV 89.7 fL (80.0-100.0); MPV 7.9 fl. (7.2-11.1); NUCLEATED RBCS 0 /100WBC; PLATELET COUNT* 182 thou/uL (150-400); RBC 3.15 mil/uL (4.50-6.00); RDW-CV 16.2 % (10.5-14.5); WBC 6.3 thou/uL (4.0-11.0)
--- NOTE | 2019-02-09 04:53 | NUR ---
Patient progressing towards goals: O2 saturation maintained >92% on 3l o2 nc and bipap during sleep. Patient denies pain and discomfort. Repositioned q2h for skin integrity. wound vac to left stump in place. King remains intact and draining to dd for critical I&O. Call light within reach
[2019-02-09 05:03] LABS: INR 1.7; PROTIME 17.2 Seconds (9.20-11.50)
[2019-02-09 05:09] LABS: ALBUMIN 3.4 g/dL (3.4-5.0); ANION GAP 14 mmol/L (7-16); BUN 49 mg/dL (7-18); CHLORIDE 101 mmol/L (98-107); CHOLESTEROL 161 mg/dL (<200); CO2 23 mmol/L (21-32); CREATININE 1.5 mg/dL (0.6-1.3); GLUCOSE 215 mg/dL (70-99); HDL CHOLESTEROL 59 mg/dL (>40); LDL CHOLESTEROL 93 mg/dL (<100); PHOSPHORUS* 5.1 mg/dL (2.5-4.9); POTASSIUM 3.8 mmol/L (3.5-5.1); SODIUM 138 mmol/L (136-145); TC:HDL 2.7 Ratio (Not establshd); TRIGLYCERIDE 48 mg/dL (<150); VLDL 10 mg/dL (<40)
[2019-02-09 05:16] LABS: SERUM ASSESSMENT Clear
[2019-02-09 07:02] LABS: ABSOLUTE LYMPHOCYTES 0.1 thou/uL (0.8-5.3); ABSOLUTE NEUTROPHILS 6.2 thou/uL (1.6-8.1); PLATELET ESTIMATE ADEQUATE
[2019-02-09 07:20] VITALS: BP 140/65
[2019-02-09 11:48] VITALS: BP 137/59
--- NOTE | 2019-02-09 13:04 | NUR ---
Pt is A&O. Pt resides at [facility] for the past several months. Pt plans to return to LTC [facility]. Spoke with , acute rehab consult placed. Pt has a supportive sister that is involved in POC. Pt wears a left leg prothesis, Pt waiting for his right leg prothesis. Pt has a walker and wc, and uses a slide board to transfer. No home o2. CM following for disposition.
[2019-02-09 15:37] VITALS: BP 137/46
--- NOTE | 2019-02-09 17:20 | NUR ---
WOUND NURSE: PATIENT SEEN TO ADDRESS RIGHT BKA WOUND WHICH WAS INITIALLY RELATED TO SURGICAL DEHISSENCE. CLEANSED WITH SOAP AND WATER, RINSED WITH WATER, THEN PATTED DRY. OBTAINED AND APPLIED WOUND VAC ULTA USING SKIN PREP, GRANUFOAM, AND TRANSPARENT DRAPE. SETTINGS APPLIED WERE 150MMHG CONTINUOUS NEG PRESSURE, INTENSITY LOW. WRAPPED BOTH BKA'S WITH KERLEX ROLL GAUZE UNDER KAMALA WRAP. PATIENT IS ELEVATING ON PILLOWS. ALSO APPLIED MOISTURE BARRIER CREAM TO BILAT BKA INTACT SKIN FOR PROTECTION. PLAN TO CHANGE VAC DRESSING 2X/WEEK ON MONDAYS AND THURSDAYS. PATIENT INSTRUCTED ON MEASURES TO PROMOTE HEALING AND PREVENT COMPLICATIONS. PATIENT VERBALIZED CORRECT UNDERSTAING.
[2019-02-09 19:45] VITALS: BP 138/62
[2019-02-10] VITALS: BP 124/52
[2019-02-10 04:00] VITALS: BP 135/70
[2019-02-10 04:48] LABS: CALCIUM 9.3 mg/dL (8.5-10.1); CREATININE 1.6 mg/dL (0.6-1.3); MAGNESIUM 2.1 mg/dL (1.8-2.4); POTASSIUM 3.7 mmol/L (3.5-5.1)
--- NOTE | 2019-02-10 05:11 | NUR ---
Patient progressing towards goals: o2 saturation maintained on room air and bipap overnight. VSS. Patient's right stump pain relieved with medication per EMAR and relaxation. King remains intact and draining to DD, good output. Wound vac in place to right stump. Possible DC back to [facility]. Call light within reach
[2019-02-10 07:30] VITALS: BP 135/87
--- NOTE | 2019-02-10 11:19 | NUR ---
Nutrition: pt with BMI 75.8, s/p Bilt LE amputation. Pt reports good appetite, denied acute nutrition concerns. Meds and labs reviewed. Pt declined diet edu. Assessed at low nutrition risk.
[2019-02-10 11:35] VITALS: BP 130/64
[2019-02-10 15:34] VITALS: BP 102/53
[2019-02-10 20:00] VITALS: BP 106/60
[2019-02-11] VITALS: BP 116/63; BP 124/54
[2019-02-11 04:00] VITALS: BP 108/57
--- NOTE | 2019-02-11 04:07 | NUR ---
ASSUMED PT CARE @ 1930. NO SOA REPORTED OR OBSERVED. PT C/O CONSTIPATION. TREE SAPPER DR NOTIFIED. MIRILAX ORDERED AND GIVEN. WILL CONTINUE TO MONITOR FOR SAFETY.
[2019-02-11 05:06] LABS: CALCIUM 9.1 mg/dL (8.5-10.1); CREATININE 1.5 mg/dL (0.6-1.3)
[2019-02-11 08:25] VITALS: BP 128/61
--- NOTE | 2019-02-11 09:00 | NUR ---
REC'D REPORT FROM NOC RN, ASSUMED CARE APPROX 0730. OX4, ABLE TO COMMUNICATE NEEDS TO STAFF. ASSESSMENT COMPLETED, VS OBTAINED. GEAR SHAVER SET UP OPERATOR IN PLACE, AFIB, 56. O2 SAT 98% RA. WOUND VAC IN PLACE TO Abi ENAMORADO. SHELDON CATHETER TO DD, CLR, YELLOW URINE. TRANSFERS WITH FABI LIFT. CALL LIGHT IN REACH.
[2019-02-11 12:00] VITALS: BP 132/64
[2019-02-11 16:00] VITALS: BP 126/58
[2019-02-11 20:00] VITALS: BP 127/57
[2019-02-12 04:00] VITALS: BP 109/54
--- NOTE | 2019-02-12 04:33 | NUR ---
ASSUMED PT CARE @ 1930. NO PAIN OR DISCOMFORT REPORTED OR OBSERVED. PT VOIDING PER URINAL SINCE SHELDON D/C'D. RATE CONTROLLED AFIB ON MONITOR. CALL LIGHT IN PLACE. HOURLY ROUNDING FOR SAFETY.
[2019-02-12 04:54] LABS: CALCIUM 9.1 mg/dL (8.5-10.1); CREATININE 1.6 mg/dL (0.6-1.3); POTASSIUM 4.3 mmol/L (3.5-5.1)
[2019-02-12 08:25] VITALS: BP 123/64
--- NOTE | 2019-02-12 08:45 | NUR ---
REC'D REPORT FROM NOC RN, ASSUMED CARE OF PATIENT APPROX 0730. A&OX4, ABLE TO COMMUNICATE NEEDS TO STAFF. ASSESSMENT COMPLETE, VS OBTAINED. PLODDING OPERATOR IN PLACE, AFIB. O2 SATS 97% RA. PATIENT WITH BLE BKA REPOSITIONS SELF IN BED, REFUSING ASSISTANCE WITH TURNS. CALL LIGHT IN REACH.
[2019-02-12 11:56] VITALS: BP 132/57
[2019-02-12 18:40] VITALS: BP 126/61
[2019-02-12 20:00] VITALS: BP 107/48
[2019-02-13] VITALS: BP 119/61
[2019-02-13 04:00] VITALS: BP 120/57
--- NOTE | 2019-02-13 04:33 | NUR ---
ASSUMED PT CARE AT APPROX 1930. PT IS AWAKE AND ORIENTED X4. VSS ON ROOM AIR. PT IS ON BIPAP AT HS. COMMUNICATIONS AGENT IN PLACE TRACING AFIB, RATE CONTROLLED. PT DENIES PAIN. POSITION CHANGES DONE Q2H. WOUND VAC ON RIGHT LOWER EXTREMITY STUMP INTACT AT 150mmHg, DRAINING TO SEROSANGUINOUS OUTPUT. NEEDS ATTENDED. CALL LIGHT WITHIN REACH. FALL PRECAUTIONS IN PLACE. HOURLY ROUNDING DONE FOR PT SAFETY.
[2019-02-13 06:05] LABS: CALCIUM 8.8 mg/dL (8.5-10.1); CREATININE 1.8 mg/dL (0.6-1.3); POTASSIUM 4.2 mmol/L (3.5-5.1)
[2019-02-13 08:00] VITALS: BP 130/59
[2019-02-13 11:39] VITALS: BP 119/57
--- NOTE | 2019-02-13 11:52 | NUR ---
Spoke with rehabilitation counsellor, she plans to initiate insurance auth today, once PT/OT put their notes in. Updated
--- NOTE | 2019-02-13 13:38 | NUR ---
WOUND NURSE: PATIENT SEEN FOR WOUND VAC DRESSING CHANGE. CLEANSED WITH WOUND CLEANSER AND GAUZE, PLACED SKIN PREP TO INTACT PERIWOUND TISSUE UNDER TRANSPARENT DRAPE, PLACED GRANUFOAM INTO THE WOUND, THEN COVERED WITH TRANSPARENT DRAPE WITH HOLE CUT TO ALLOW SUCTION AND ATTACHED TRAC PAD, BRIDGED AWAY FROM THE WOUND. APPLIED MOISTURE BARRIER TO DRY SKIN, WRAPPED WITH KERLEX UNDER KAMALA WRAP. VAC SETTINGS: 150MMHG CONTINUOUS NEG PRESSURE, INTENSITY HIGH. THIS WAS TOLERATED WELL BY THE PATIENT. CURRENT MEASUREMENTS 0.8 X 1.0 X 3.3CM. RED, GRANULATION TISSUE IN THE WOUND BED, NO PERIWOUND REDNESS, WARMTH, OR INDURATION NOTED.
--- NOTE | 2019-02-13 15:11 | NUR ---
ASSUMED PT CARE REPORT RECEIVED FROM NURSE PT IS AOX4 RESTING IN BED. AFIB TRACING ON MEDIA REPORTER. PT HAS NO COMPLAINT. BILATERAL BKA WRAPPED. PT OUT OF BED TO CHAIR WITH PT HELP. PT ALSO WORKED WITH OT. TORSEMIDE DOSAGE HAS BEEN CHANGED. PT ACCUCHECK MONITORED. SEE CHART. STRICT I&O MONITORED. WOUND VACC CONTINOUSLY ON AT 150. WILL CONTINUE TO MONITOR PT
[2019-02-13 15:33] VITALS: BP 125/56
[2019-02-13 20:00] VITALS: BP 108/60
[2019-02-14] VITALS: BP 114/63
[2019-02-14 04:00] VITALS: BP 142/63
--- NOTE | 2019-02-14 04:34 | NUR ---
ASSUMED PT CARE AT 1930. NURSING ASSESSMENT COMPLETED AT START OF SHIFT. PT VOICED NO CONCERNS THIS SHIFT. PT EDUCATED ON IMPORTANCE OF Q2H REPOSITIONING. PT VERBALIZED UNDERSTANDING. AFIB ON FELT HAT MELLOWING MACHINE OPERATOR. HOURLY ROUNDING COMPLETED. CALL LIGHT WITHIN REACH.
[2019-02-14 05:22] LABS: HEMATOCRIT 31.3 % (42.0-52.0); HEMOGLOBIN 11.1 gm/dL (14.0-18.0); MCH 30.8 pg (26.0-34.0); MCHC 35.4 g/dL (28.0-37.0); MCV 87.1 fL (80.0-100.0); MPV 7.6 fl. (7.2-11.1); NUCLEATED RBCS 0 /100WBC; PLATELET COUNT* 283 thou/uL (150-400); RDW-CV 15.5 % (10.5-14.5); WBC 12.6 thou/uL (4.0-11.0)
[2019-02-14 05:28] LABS: CALCIUM 9.2 mg/dL (8.5-10.1); CREATININE 1.8 mg/dL (0.6-1.3); POTASSIUM 3.8 mmol/L (3.5-5.1)
[2019-02-14 05:58] LABS: ABSOLUTE EOSINOPHILS 1.4 thou/uL (0.0-0.7); ABSOLUTE LYMPHOCYTES 1.5 thou/uL (0.8-5.3); ABSOLUTE MONOCYTES 0.9 thou/uL (0.0-1.2); ABSOLUTE NEUTROPHILS 8.8 thou/uL (1.6-8.1); PLATELET ESTIMATE ADEQUATE
[2019-02-14 05:59] LABS: ANISOCYTOSIS 1+; POIKILOCYTOSIS 1+; POLYCHROMASIA Occasional
[2019-02-14 11:37] VITALS: BP 96/57
--- NOTE | 2019-02-14 14:14 | NUR ---
Continue to await insurance auth for acute rehab.
--- NOTE | 2019-02-14 14:27 | NUR ---
Insurance denied acute rehab, plan for Pt to dc back to [facility] today. Awaiting to hear back from admissions regarding their ability to accept Pt back today.
[2019-02-14] MEDS ORDERED: MUCINEX600 MG PO (14:36)
[2019-02-14] MEDS ORDERED: ELIQUIS5 MG PO (14:36)
[2019-02-14] MEDS ORDERED: NEURONTIN 300300 M1 PO (14:36)
[2019-02-14] MEDS ORDERED: SENNA PLUS TAB1 EACH PO (14:36)
[2019-02-14] MEDS ORDERED: IRON325 PO (14:36)
[2019-02-14] MEDS ORDERED: LIPITOR40 MG PO (14:36)
[2019-02-14] MEDS ORDERED: BASAGLAR K100 UNIT/1 SUBQ (14:36)
[2019-02-14] MEDS ORDERED: DEMADEX20 MG PO (14:36)
[2019-02-14] MEDS ORDERED: TRAMADOL 50 MG50 MG PO (14:36)
[2019-02-14] MEDS ORDERED: EPLERENONE25 MG PO (14:36)
[2019-02-14] MEDS ORDERED: OXYCODONE-APAP1 EAC4 PO (14:36)
[2019-02-14] MEDS ORDERED: KLOR-CON 1010 MEQ PO (14:37)
[2019-02-14] MEDS ORDERED: NEXIUM40 MG PO (14:41)
--- NOTE | 2019-02-14 15:25 | NUR ---
TYPING OFFICE WORKER INFORMED THAT PATIENT'S INSURANCE DENIED INPATIENT REHAB FOR THE PATIENT, AND THAT THE PATIENT WILL RETURN TO [facility]. D/C YARN EXAMINER CONTACTED [facility] WITH [facility] TO INFORM OF THE PATIENT'S RETURN, AND FAXED THE PATIENT'S D/C ORDERS AND MED REC. [facility] ARRANGED TRANSPORT FOR THE PATIENT FOR 1729. D/C YARN EXAMINER INFORMED THE RN IN-CHARGE OF THE PATIENT OF THE PATIENT'S TIME OF TRANSPORT AND WHERE TO CALL REPORT. RN IN AGREEMENT. CM WILL REMAIN AVAILABLE TO ASSIST AND FOLLOW NEEDED.
--- NOTE | 2019-02-14 18:00 | NUR ---
WOUND NURSE: PT SEEN TO PLACE WET TO DRY DRESSING ON RIGHT STUMP. PTS OWN WOUND VAC NOT CHARGED, PT TO DC TO [facility] THIS EVENING. WOUND VAC AND DRESSING REMOVED FROM RIGHT STUMP WOUND. RIGHT STUMP WASHED WITH WOUND CLEASER, PATTED DRY, DC PHOTOS TAKEN. BARRIOR CREAM APPLIED TO RLE. WET TO DRY DRESSING PLACED IN THE OPEN WOUND. COVERED WITH KERLIX AND KAMALA BANDAGE. MINIMAL [place] DRAINAGE NOTED FROM WOUND. LEFT STUMP DRESSING REMOVED, LLE WASHED WITH WOUND CLEANSER, PATTED DRY, DC PHOTOS TAKEN. BARRIOR CREAM APPLIED, WRAPPED WITH KERLIX AND KAMALA BANDAGE. PT TOLERATED WELL. LEFT WITH OWN WOUND VAC.
== END 2019-02-14 18:12 | DRG 291 ==
LOC: M.ERS 08:05 → M.TBA-ER 09:32 → M.2W 09:32
PROVIDERS: Family Medicine; ADMIT Family Medicine
PROC: 5A09357 Assistance with Respiratory Ventilation, Less than 24 Consecutive Hours, Continuous Positive Airway Pressure (ICD-10-PCS; principal; 2019-02-09)
PROC: 5A09357 Assistance with Respiratory Ventilation, Less than 24 Consecutive Hours, Continuous Positive Airway Pressure (ICD-10-PCS; 2019-02-12)
DX: I50.43 Acute on chronic combined systolic (congestive) and diastolic (congestive) heart failure (principal); J96.01 Acute respiratory failure with hypoxia; D68.59 Other primary thrombophilia; E11.22 Type 2 diabetes mellitus with diabetic chronic kidney disease; N18.3 Chronic kidney disease, stage 3 (moderate); E11.51 Type 2 diabetes mellitus with diabetic peripheral angiopathy without gangrene; I48.2 Chronic atrial fibrillation; G47.33 Obstructive sleep apnea (adult) (pediatric); I27.20 Pulmonary hypertension, unspecified; D64.9 Anemia, unspecified; T87.81 Dehiscence of amputation stump; E11.649 Type 2 diabetes mellitus with hypoglycemia without coma; Z79.01 Long term (current) use of anticoagulants; Z89.512 Acquired absence of left leg below knee; Z89.511 Acquired absence of right leg below knee; Z79.899 Other long term (current) drug therapy; Z79.82 Long term (current) use of aspirin; Z79.4 Long term (current) use of insulin; Z88.8 Allergy status to other drugs, medicaments and biological substances; Z87.891 Personal history of nicotine dependence

== ENCOUNTER → 2019-02-22 | Outpatient (CLI) | payer OTHER ==
[~2019-02-22] MED LIST changes: +DEMADEX20 MG PO; +ELIQUIS5 MG PO; +EPLERENONE25 MG PO; +LIPITOR40 MG PO; +MUCINEX600 MG PO; +NEURONTIN 300300 M1 PO; +NEXIUM40 MG PO; +SENNA PLUS TAB1 EACH PO
== END ==
LOC: M.WC 09:00
DX: T86.821 Skin graft (allograft) (autograft) failure (principal); E11.622 Type 2 diabetes mellitus with other skin ulcer; L97.812 Non-pressure chronic ulcer of other part of right lower leg with fat layer exposed; E11.51 Type 2 diabetes mellitus with diabetic peripheral angiopathy without gangrene; E11.22 Type 2 diabetes mellitus with diabetic chronic kidney disease; I13.0 Hypertensive heart and chronic kidney disease with heart failure and stage 1 through stage 4 chronic kidney disease, or unspecified chronic kidney disease; I50.9 Heart failure, unspecified; N18.9 Chronic kidney disease, unspecified; E78.5 Hyperlipidemia, unspecified; E66.9 Obesity, unspecified; I48.91 Unspecified atrial fibrillation; F32.9 Major depressive disorder, single episode, unspecified; Z89.512 Acquired absence of left leg below knee; Z87.891 Personal history of nicotine dependence; Y83.2 Surgical operation with anastomosis, bypass or graft as the cause of abnormal reaction of the patient, or of later complication, without mention of misadventure at the time of the procedure

== ENCOUNTER 2019-02-24 13:48 | Inpatient (IN) | payer OTHER ==
[~2019-02-24] VITALS: Ht 182.9 cm; Wt 103.9 kg
--- NOTE | 2019-02-24 18:09 | NUR ---
PATIENT ALERT AND ORIENTED X 4, BKA BILAT. DRESSING TO RT STUMP CHANGED. WOUND CLEAN AND DRY. DENIES COMPLAINTS OF PAIN OR DISCOMFORT.
[2019-02-24 22:00] VITALS: BP 112/64
--- NOTE | 2019-02-25 03:12 | NUR ---
ASSESSMENT: PT WAS SITTING UP IN THE WC AT SHIFT CHANGE. DENIES PAIN AND SOB. MAX ASSISTANCE OF 3 WHEN GOING TO BED. THE BED IS ABOUT 2 INCHES HIGHER FOR PT TO EASILY SLIDE INTO BED USING THE SLIDE BOARD. VSS, AFEBRILE. WOUND NOT OBSERVED BY THIS RN, DID SEE WHAT APPEARS A RASH ON THE STUMP ON THE RIGHT LEG, STUMP SHRIKER ANTONI STUMPS. REMAIN WITHIN 2K FR. BARRIER CREAM APPLIED T BUTTOM R/T REDNESS AND PEELING. WOUND NURSE AWARE OF NON-HEALING WOUND ON RIGHT STUMP. WILL CONTINUE TO MONITOR.,
[2019-02-25 05:09] LABS: HEMATOCRIT 26.3 % (42.0-52.0); HEMOGLOBIN 9.4 gm/dL (14.0-18.0); MCH 31.3 pg (26.0-34.0); MCHC 35.9 g/dL (28.0-37.0); MCV 87.1 fL (80.0-100.0); MPV 7.8 fl. (7.2-11.1); NUCLEATED RBCS 0 /100WBC; PLATELET COUNT* 249 thou/uL (150-400); RBC 3.02 mil/uL (4.50-6.00); RDW-CV 15.9 % (10.5-14.5); WBC 9.1 thou/uL (4.0-11.0)
[2019-02-25 05:30] LABS: CALCIUM 8.9 mg/dL (8.5-10.1); CREATININE 1.7 mg/dL (0.6-1.3); POTASSIUM 4.2 mmol/L (3.5-5.1)
[2019-02-25 06:47] LABS: ABSOLUTE BASOPHILS 0.1 thou/uL (0.0-0.2); ABSOLUTE EOSINOPHILS 1.5 thou/uL (0.0-0.7); ABSOLUTE LYMPHOCYTES 1.7 thou/uL (0.8-5.3); ABSOLUTE MONOCYTES 0.5 thou/uL (0.0-1.2); ABSOLUTE NEUTROPHILS 5.4 thou/uL (1.6-8.1); ANISOCYTOSIS 1+; PLATELET ESTIMATE ADEQUATE
[2019-02-25 08:10] VITALS: BP 136/60
--- NOTE | 2019-02-25 15:52 | NUR ---
ASSUMED CARE AT 0730. ALERT ORIENTED PLEASANT COOPERATIVE. 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 BKA DRESSING CHANGED IT WAS SLIPPING DOWN. CLEANSED WITH WOUND CLEANSER AND HAS MOIST AREA L LATERAL AREA NEAR KNEE INCISION HEALED BUT HAS SMALL AREA NOT HEALE LATERAL INCSION Bababoo AG TO HOLE OPEN AREA MEPILEX AND GUAZE AND KAMALA WRAP. PT. DENIES PAIN PARTICIPATING IN THERAPIES OFFERED TO REST AFTER THERAPIES BUT WAS OK TO REMAIN IN W/C PTS. CHOICE. VOIDS PER URINAL CLEAR RADHA URINE. APPETITE GOOD FEEDS SELF AND TAKES MEDS WITHOUT DIFFICULTY. PROPELLS SELF IN W/C.
--- NOTE | 2019-02-25 18:07 | NUR ---
PT. HAS DONE WEIGHT SHIFT IN W/C FREQUENTLY. ON FLUID RESTRICTION.
[2019-02-25 20:29] VITALS: BP 123/49
--- NOTE | 2019-02-26 05:49 | NUR ---
ASSUMED CARES AT 1920. ALERT AND ORIENTED. PLEASANT. DENIED ANY NEED FOR PAIN MEDS. MAX ASSIST X 2 PERSON. GAIT BELT AND SLIDING BOARD. DID BETTER TONIGHT WITH TRANSFER. USED BEDPAN AND HAD LARGE BM. BARRIER CREAM APPLIED TO BOTTOM AND GROIN REDNESS. DRSG TO RIGHT STUMP INTACT. NO ISSUES OVERNIGHT. CALL LIGHT IN REACH AND BED ALARM ON.
[2019-02-26 08:24] VITALS: BP 137/61
--- NOTE | 2019-02-26 16:08 | NUR ---
ASSUMED CARE AT 0730. ALERT ORIENTED PLEASANT COOPERATIVE. HX OF BILATERAL BKA S. TRANSFERS WITH MIN ASSIST FROM BED TO W/C USING SLIDING BOARD. DOES WEIGHT SHIFTS WHILE IN W/C. 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 RT. BKA DRESSING CHANGED AND PICTURES IN CHART. CONSULT FOR WOUND CARE AND DR. SAMSON CONNOR SURGEON. DENIES PAIN OR CONCERNS. TO DR CAGE W/C PROPELLS SELF INDEPENDENTLY. FUNGAL CREAM TO BUTTOCKS AND L AND RT. GROIN THIGH AREAS AFTER PERICARE. SISTER HERE VISITING LATER AFTERNOON. DR. ELISEO MAGAÑA.
[2019-02-26 20:00] VITALS: BP 114/52
--- NOTE | 2019-02-27 05:40 | NUR ---
ASSUMED CARES AT 1920. ALERT AND ORIENTED. PLEASANT. BILATERAL BKA. RIGHT STUMP DRESSING INTACT. MOD ASSIST WITH GAIT BELT AND SLIDING BOARD. IMPROVING WITH TRANSFERS. TRIED TO USE URINAL BUT MISSED AND HAD URINARY ACCIDENT. ASSISTED PT WITH PERICARES AND CHANGING. FUNGAL CREAM APPLIED TO REDNESS TO BOTTOM AND GROIN. DENIED ANY NEED FOR PAIN MEDS. CALL LIGHT IN REACH AND BED ALARM ON.
[2019-02-27 09:12] VITALS: BP 141/54
--- NOTE | 2019-02-27 13:04 | NUR ---
Nutrition: Pt admitted to rehab as bilat amputee, Rt stump wound. BG 198, BUN 31, cr 1.7, no albumin recorded. CHO controlled diet, eating 100%. H/o IDDM, CHF, afib, ADRIANNE, CKD III, HTN. Appears at low risk. Will follow weekly.
--- NOTE | 2019-02-27 13:13 | NUR ---
WOUND NURSE: PATIENT SEEN TO ADDRESS WOUND ON RIGHT BKA. PRESENTS A CAVITY ON THE LATERAL ASPECT OF THE POSTOPERATIVE SITE AND MEASURES 1.0 X 1.0 X 3.0 CM. THERE IS 2.5 CM UNDERMINING FROM 12 TO 12 O'CLOCK. THERE IS MODERATE TO LARGE AMOUNT OF COFFEE BROWN OPAQUE DRAINAGE CONTAINED IN THE WOUND BED. THERE IS NO ASSOCIATED HEAT, BUT PERIWOUND TISSUE APPEARS PEELING AND SOMEWHAT EXCORIATED. CLEANSED WITH SOAP AND WATER, RINSED WITH WATER, THEN PATTED DRY. IRRIGATED WOUND WITH NORMAL SALINE. PACKED WITH AQUACEL AG, COVERED WITH 4X4'S UNDER ABD, THEN WRAPPED WITH KERLEX ROLL GAUZE UNDER KAMALA WRAP. THIS WAS TOLERATED WELL BY THE PATIENT. OBTAINED AN AEROBIC SWAB C&S FROM WOUND AND SENT TO LAB. PATIENT WAS INSTRUCTED ON REPORTABLE S/S AND MEASURES TO PROMOTE HEALING AND PREVENT COMPLICATIONS. PATIENT STATES HE UNDERSTANDS.
--- NOTE | 2019-02-27 16:41 | NUR ---
ASSUMED CARE AT 0730. ALERT ORIENTED PLEASANT COOPERATIVE. HX OF BILATERAL BKA S. L BKA WEARS STUMP COMMUTATOR UNDERCUTTER AND RT. ONE RECENT HAS DRESSING AND KAMALA WRAP.WOUND NURSE HERE AND WROTE ORDERS AND CHANGED DRESSING DR. BENSON ASSOCIATE HERE AND ALSO DID DRESSING CHANGE AFTER VISUALIZING IT. PARTICIPATING IN THERAPIES. MEDICATED WITH PRN PAIN MED X 1 THIS A.M. BEFORE THERAPIES. HAS DRY SKIN AND C/O ITCHING SPOKE WITH ELISEO MONTANO WHEN ROUNDING ORDER OBTAINED FOR BENADYRL PT. REQUESTED. TRANSFERS WITH SBA G BELT SLIDING BOARD FROM BED TO W/C. PROPELLS SELF IN W/C INDEPENDENTLY. CULTURE SENT FROM WOUND RT. STUMP OBTAINED BY WOUND CARE NURSE. VOIDS PER URINAL.
--- NOTE | 2019-02-27 16:55 | NUR ---
SW met with pt to complete initial assessment, introduce self, and SW role on inpt rehab unit. Pt alert, oriented, pleasant. Pt goal is to dc home independently. Pt has hx of [facility]. Pt says he will be getting a sliding board and in process of receiving prosthetic from [facility]. Pt has a wc but says that his doorways are too small and he is working on figuring out how to get into the bathroom where he has a tub bench, [facility]. Pt also has drop arm BSC, walker, and ramp. SW to continue to follow to assist with safe dc planning.
--- NOTE | 2019-02-27 17:53 | NUR ---
I have reviewed the documentation by AMARILIS FIERRO from TODAY to 02/27/19 and I concur with it. JOSE LOPEZ
[2019-02-27 20:00] VITALS: BP 113/51
--- NOTE | 2019-02-28 05:27 | NUR ---
ASSUMED CARE AT 1920. ALERT AND ORIENTED. PLEASANT. DRESSING TO RIGHT STUMP INTACT. DENIED ANY NEED FOR PAIN MED. MOD ASSIST WITH GAIT BELT AND SLIDING BOARD. USES URINAL AND NURSING EMPTIES. FUNGAL CREAM TO BUTTOCKS. ABLE TO TURN SELF OVERNIGHT. CALL LIGHT IN REACH. BED ALARM ON.
[2019-02-28 07:55] VITALS: BP 118/73
--- NOTE | 2019-02-28 18:43 | NUR ---
PT ALERT AND ORIENTED X4. NEW OPEN SORES IN THE LEFT LEG STUMP, PICTURES TAKEN, POSTED IN THE CHART. MEPILEX DSG APPLIED. RT LOWER EXTREMITY DRESSED PER ORDERS. PT OUT OF THE BED FOR THE WHOLE DAY. FEEDS HIMSELF, TOLERATING HIS MEALS. VOIDING PER URINAL. NO COMPLAINTS OF PAIN.
[2019-02-28 19:47] VITALS: BP 104/66
--- NOTE | 2019-02-28 21:50 | NUR ---
AWAKENED FOR HS REASSESSMENT AND MEDICATION PASS. DENIES DISCOMFORT. KAMALA WRAP AROUND STUMPS BOTH DRY/INTACT. APPLIED ANTIFUNGAL CREAM TO REDNESS IN SHAKEEL AREA. TOOK MEDICATIONS WHOLE WITH WATER. URINAL AND CALL LIGHT WITHIN REACH.
--- NOTE | 2019-03-01 06:28 | NUR ---
RESTED SOUNDLY. NO COMPLAINTS VOICED. HOURLY ROUNDING IN PROGRESS.
[2019-03-01 08:18] VITALS: BP 119/52
--- NOTE | 2019-03-01 11:11 | NUR ---
I have reviewed the documentation by AMARILIS FIERRO from 02/28/19 to 03/01/19 and I concur with it. JOSE LOPEZ
--- NOTE | 2019-03-01 14:43 | NUR ---
SW and Dr Koehler met with pt to review team conference summary and plan for pt to remain on inpt rehab unit at least another week with team to reassess pt length of stay during team conference next Thursday 03/08. Pt in agreement with plan. SW to continue to follow to assist with safe dc planning. Pt goal remains to dc home independently.
--- NOTE | 2019-03-01 17:44 | NUR ---
I have reviewed the documentation by AMARILIS FIERRO from 02/27/19 to 03/01/19 and I concur with it. JOSE LOPEZ
--- NOTE | 2019-03-01 18:33 | NUR ---
PATIENT TRANSFERS SELF WITH SLID BOARD AND SBA. DENIES COMPLAINTS OF PAIN. VASCULAR SURG WOUND NURSE CHANGED DRESSINGS TO BILAT STUMPS. ALERT AND ORIENTED X 4, NO SIGN OF DISTRESS.
[2019-03-01 20:00] VITALS: BP 122/62
--- NOTE | 2019-03-02 05:03 | NUR ---
PATIENT SLEPT WELL DURING THIS SHIFT. PT TO BATHROOM TO VOID PER URINAL WITH USE OF HIS W/CHAIR. PT ABLE TO GET INTO BED WITH USE OF SLIDE BOARD. STUMP WAITER PLACED ON LT STUMP. BARRIER CREAM PLACED ON COCCYX AREA. PT DENIES NEEDS AT THIS TIME. WILL CONTINUE TO MOITOR.
--- NOTE | 2019-03-02 13:46 | NUR ---
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 PA RETURNED CALL AND SAID SHE WOULD DISCUSS WITH DR CONNOR. PATIENT IS UPSET WITH HAVING TO BE ON ISOLATION.
--- NOTE | 2019-03-02 14:29 | NUR ---
DR ESPINAL, DR GOMES NOTIFIED OF POSITIVE WOUND CULTURES. BOTH PHYSICIANS ASKED THAT VASCULAR SURG BE NOTIFIED. SECOND CALL TO DR CONNOR'S EXECUTOR OF ESTATE INFORMING HER THAT PATIENT STATES HE WAS TREATED FOR WOUND CULTURE AT [facility].
--- NOTE | 2019-03-02 14:42 | NUR ---
RECEIVED TELEPHONE ORDER FROM DR CONNOR'S PA, ORDERS TO CONSULT DR EDWARDS. DR EDWARDS WILL SEE PATIENT THIS AFTERNOON.
[2019-03-02 15:10] VITALS: BP 122/62
--- NOTE | 2019-03-02 16:48 | NUR ---
I have reviewed the documentation by AMARILIS FIERRO from TODAY to 03/02/19 and I concur with it. JOSE LOPEZ
--- NOTE | 2019-03-02 18:20 | NUR ---
PATIENT ALERT AND ORIENTED X 4, SBA WITH TRANSFERS. DR EDWARDS UP THIS AFTERNOON TO SEE. ABX PO ORDERED. DRESSING CHANGE TO STUMP. NO COMPLAINTS OF PAIN OR DISCOMFORT.
[2019-03-02 20:33] VITALS: BP 114/59
--- NOTE | 2019-03-03 05:49 | NUR ---
PATIENT IN W/CHAIR AT BEGINNING OF SHIFT. PT CALLS FOR ASSISTANCE PRIOR TO GETTING INTO BED. PT ABLE TO GET FROM W/CHAIR TO BED WITH USE OF SLIDE BOARD. PT WITH DSG AND KAMALA WRAP PLUS STUMP WASTEWATER DESIGN ENGINEER OVER RT STUMP. LT STUMP COVERED. PT IS ON ROOM AIR. PT DENIES PAIN. PT VOIDS YELLOW URINE PER URINAL. BLOOD SUGAR AT 2100 = 166. PT REMAINS IN CONTACT ISOLATION FOR MRSA AND VRE. WILL CONTINUE TO MONITOR.
[2019-03-03 07:00] VITALS: BP 125/68
--- NOTE | 2019-03-03 07:02 | CON ---
[address] [address] CONSULTATION Name: IVAN BOOTHE Room: [address] M.R.#: [id number] Admission: 02/24/19 Attend Phys: Gopi Koehler MD Discharge: Date of : 51 Report #: [id number] THIS REPORT FOR: //name// CC: Valerie Koehler DATE OF SERVICE: 03/02/2019 ATTENDING PHYSICIAN: Gopi Koehler MD REASON FOR EVALUATION: Status post right below-knee amputations complicated by wound drainage with culture proven MRSA as well as some vancomycin-resistant enterococcus. HISTORY OF PRESENT ILLNESS: Chart reviewed, patient examined. This is a 63-year-old with diabetes mellitus complicated by vasculopathy, previous bilateral lower extremity amputations, the right most recently, who was admitted earlier this month with cardiomyopathy complicated by congestive heart failure, underwent appropriate treatment, was discharged to a long-term care facility and was redirected to rehabilitation. He has been undergoing treatment, was noted to have some drainage from the incisional site. Culture was collected with growth of MRSA as well as VRE. He denies significant amount of pain and discomfort at the site. Has not had fevers or chills. Appetite generally been good. No pulmonary or gastrointestinal related complaints. ALLERGIES: LISTED TO AUGMENTIN. CURRENT MEDICATIONS: Include insulin lispro, p.r.n. analgesics, antiemetics, loratadine, sertraline, cholecalciferol, eplerenone, torsemide, aspirin, insulin glargine, levothyroxine, pantoprazole, gabapentin, ferrous sulfate, apixaban and diltiazem CD. PAST MEDICAL HISTORY: As described above, the diabetes mellitus complicated by vasculopathy, has renal insufficiency, history of chronic atrial fibrillation, cardiomyopathy, history of congestive heart failure, bilateral below-knee amputations and chronic anemia. SOCIAL HISTORY: Former smoker. No ethanol, no illicit drug use. FAMILY HISTORY: Noncontributory. REVIEW OF SYSTEMS: A 10-point review of systems unremarkable with the exception of the above. PHYSICAL EXAMINATION: GENERAL: He is pleasant, alert, cooperative, in no evident distress, [place] [address] CONSULTATION Name: IVAN BOOTHE Room: [address]#: [id number] Admission: 02/24/19 Attend Phys: Gopi Koehler MD Discharge: Date of : 51 Report #: [id number] mildly undernourished. VITAL SIGNS: Temperature 98.2, pulse 70, respirations 16, blood pressure 122/60. SKIN: Warm, dry. EYES: Extraocular muscles intact. NECK: Supple. LUNGS: Clear to auscultation. HEART: Irregular appreciate murmur. ABDOMEN: Soft, distended, nontender. COR: Bilateral lower extremities have compression with a dressing on the right with apparently just recently changed. GENITOURINARY/RECTAL: Deferred. LABORATORY DATA: Cultures described above collected on with 4+ MRSA as well as vancomycin-resistant enterococcus. It was susceptible to penicillin. Most recent creatinine was 1.7. Most recent white count was 9.1, H and H 9.4/26.3. ASSESSMENT AND PLAN: Postoperative incisional drainage with heavy growth of MRSA. At this point, appears to be colonization; however, there is very little remaining tibia at this point. He is intending to have a prosthesis, so I think it is reasonable to go and start systemic antibiotics given the narrow line between colonization and infection at this point, see how he does clinically. Continue wound care as prescribed. <ELECTRONICALLY SIGNED> By: Giuliano Lane MD 03/03/[id number] MD /nt
--- NOTE | 2019-03-03 15:36 | NUR ---
ASSUMED CARE AT 0730. ALERT ORIENTED PLEASANT AND COOPERATIVE. HX OF BILATERAL BKAS RT. STUMP HAS SMALL OPEN AREA ON LATERAL INCISION DRESSING WAS CHANGED TODAY VISUALIZED BY VASCULAR AND DR. EDWARDS. PTS. L STUMP HAS BLISTERED AREA ALONG KNEE AREA LOTION APPLIED AND AN ABD PLACED WITH STUMP GROUP EXERCISE MANAGER. DENIES PAIN OR CONCERNS PARTICIPATING IN THERAPIES. IS IN ISOLATION FOR MRSA VRE. TRANSFERS WITH SBA SLIDING BOARD GAIT BELT FROM BED TO W/C. USES CALL LIGHT APPROPRIATELY FOR ASSIST.
--- NOTE | 2019-03-03 15:39 | NUR ---
I have reviewed the documentation by AMARILIS FIERRO from TODAY to 03/03/19 and I concur with it. JOSE LOPEZ
[2019-03-03 20:32] VITALS: BP 122/60
--- NOTE | 2019-03-04 04:27 | NUR ---
ASSUMED CARE AT 1915H, ON ROOM AIR AND BKA NOTED WITH STUMPS INTACT.NOTED SKIN LESSIONS ON FOREARMS AND REDNESS IN COCCXYS AREA, OINTMENT BARRIER APPLIED.NO COMPLAIN OF PAIN.ISOLATION AND FALL PRECAUTION MAINTAINED.CONTINUE MONITORING AND TOWARDS GOAL.
[2019-03-04 08:25] VITALS: BP 130/58
--- NOTE | 2019-03-04 14:20 | NUR ---
ALERT AND ORIENTED X 4, UP WITH SUPERVISION WITH SLIDE BOARD. DRESSING TO RT STUMP CHANGED. MIN DRAINAGE. DENIES COMPLAINTS OF PAIN OR DISCOMFORT. CONT. WITH PLAN OF CARE.
[2019-03-04 19:00] VITALS: BP 123/57
--- NOTE | 2019-03-04 20:05 | NUR ---
SITTING UP IN WHEELCHAIR WATCHING TV. DRESSINGS ON STUMPS DRY/INTACT. DENIES DISCOMFORT. SNACK PROVIDED.
--- NOTE | 2019-03-05 05:29 | NUR ---
WENT TO BED ABOUT 2330. TRANSFERRED FROM W/C TO BED WITH SBA, GAITBELT, SLIDING BOARD. HAS RESTED QUIETLY SINCE THEN. CALL LIGHT AND URINAL WITHIN REACH. HOURLY ROUNDING IN PROGRESS.
[2019-03-05 09:45] VITALS: BP 110/45
--- NOTE | 2019-03-05 13:57 | NUR ---
PATIENT UP IN WHEELCHAIR PROPELLING SELF IN ROOM AND ON THE UNIT. DRESSING CHANGE TO RT AND LT STUMP. PATIENT CONT. ABX WITHOUT ADVERSE REACTION. NO COMPLAINTS OF PAIN OR DISCOMFORT. NO SIGN OF DISTRESS. CONT. WITH CURRENT PLAN OF CARE AT THIS TIME.
--- NOTE | 2019-03-05 17:49 | NUR ---
PATIENT UP IN WHEELCHAIR MOST OF THE DAY. DENIES COMPLAINTS OF PAIN OR DISCOMFORT. NO SIGN OF DISTRESS. CONT. WITH CURRENT PLAN OF CARE.
[2019-03-05 20:02] VITALS: BP 126/65
--- NOTE | 2019-03-05 20:35 | NUR ---
SITTING UP IN WHEELCHAIR. DENIES DISCOMFORT. IN GOOD SPIRITS. DENIES DISCOMFORT. CALL LIGHT AND URINAL WITHIN REACH.
--- NOTE | 2019-03-06 05:30 | NUR ---
WENT TO BE ABOUT 2315. RESTED QUIETLY. NO COMPLAINTS VOICED. HOURLY ROUNDING IN PROGRESS.
[2019-03-06 08:30] VITALS: BP 129/60
[2019-03-06 12:56] LABS: HEMATOCRIT 31.2 % (42.0-52.0); MCH 31.1 pg (26.0-34.0); MCHC 35.2 g/dL (28.0-37.0); MCV 88.3 fL (80.0-100.0); MPV 7.4 fl. (7.2-11.1); NUCLEATED RBCS 0 /100WBC; PLATELET COUNT* 355 thou/uL (150-400); RBC 3.54 mil/uL (4.50-6.00); RDW-CV 16.5 % (10.5-14.5); WBC 9.7 thou/uL (4.0-11.0)
[2019-03-06 13:09] LABS: ALBUMIN 3.3 g/dL (3.4-5.0); CALCIUM 9.1 mg/dL (8.5-10.1); CREATININE 1.9 mg/dL (0.6-1.3); POTASSIUM 4.5 mmol/L (3.5-5.1); TOTAL BILIRUBIN 0.4 mg/dL (<0.1-1.0); TOTAL PROTEIN 7.4 g/dL (6.4-8.2)
[2019-03-06 13:25] LABS: ABSOLUTE BASOPHILS 0.1 thou/uL (0.0-0.2); ABSOLUTE EOSINOPHILS 1.6 thou/uL (0.0-0.7); ABSOLUTE LYMPHOCYTES 1.5 thou/uL (0.8-5.3); ABSOLUTE MONOCYTES 0.3 thou/uL (0.0-1.2); ABSOLUTE NEUTROPHILS 6.3 thou/uL (1.6-8.1); METAMYELOCYTES 2 %
[2019-03-06 13:26] LABS: ANISOCYTOSIS 1+; PLATELET ESTIMATE ADEQUATE
--- NOTE | 2019-03-06 14:40 | NUR ---
ASSUMED CARE AT 0730. ALERT ORIENTED PLEASANT COOPERATIVE. HX OF BILATERAL BKAS. TRANSFERS WITH G BELT SLIDING BOARD FROM BED TO W/C PT. WEIGHT SHIFTS IN HIS W/C AT INTERVALS. PARTICIPATING IN THERAPIES THROUGHOUT THE DAY. VOIDS PER URINAL CLEAR RADHA URINE. DID REQUEST PRN PAIN MED BEFORE LUNCH FOR RT. STUMP PAIN THINKS IT MAY BE DUE TO WEATHER CHANGES LIKE ARTHRITIC PAIN. PHOTOS TAKEN OF STUMPS AND BUTTOCKS REDNESS FUNGAL CREAM APPLIED LIBERALLY. PROPELLS SELF ABOUT IN W/C. IN CONTACT ISOLATION FOR MRSA AND VRE.
[2019-03-06 19:30] VITALS: BP 117/59
--- NOTE | 2019-03-06 20:35 | NUR ---
SITTING UP IN WHEELCHAIR. IN GOOD SPIRITS. PRN BENADRYL GIVEN FOR COMPLAINT OF ITCHING. SNACK PROVIDED.
--- NOTE | 2019-03-07 06:48 | NUR ---
WENT TO BED ABOUT 2335. RESTED QUIETLY. USED URINAL X ONE. NO COMPLAINTS VOICED. HOURLY ROUNDING IN PROGRESS.
[2019-03-07 08:00] VITALS: BP 136/64
--- NOTE | 2019-03-07 13:33 | NUR ---
SPOKE TO THE PATIENT TO DISCUSS ANY QUESTIONS OR CONCERNS THAT HE MAY HAVE FOR TOMORROWS TEAM CONFRENCE MEETING. PATIENT INFORMS THAT HE HAS NO QUESTIONS OR CONCERNS FOR TOMORROWS MEETING. CM WILL REMAIN AVAILABLE TO ERINN AND FOLLOW NEEDED.
--- NOTE | 2019-03-07 16:03 | NUR ---
ASSUMED CARE AT 0730. ALERT ORIENTED PLEASANT COOPERATIVE. HX OF BILATERAL BKAS WEARS STUMP INSURANCE CLAIMS ASSISTANT ON L STIMP. RT. STUMP HAS KAMALA WRAP WITH DAILY DRESSING CHANGE. SUREKHA NURSE PRACTICIONER HERE AND CHANGED DRESSING AROUND NOON RT. STUMP. WROTE ORDERS RE DRESSING CHANGES. PT. HAS BEEN ITCHING ON HIS BACK AND ARMS UREA CREAM APPLIED AND BENADRYL TOPICAL APPLIED ALSO BENADRYL PO GIVEN THIS A.M. IN CONTACT ISOLATION FOR MRSA AND VRE. TRANSFERS WITH SLIDING BOARD G BELT TO DROP ARM COMMODE TO HAVE BM. ABLE TO DO HYGEINE AND NEEDS SOME ASSIST WITH CLOTHING ADJUSTMENTS. PARTICIPATING IN THERAPIES THROUGHOUT THE DAY. MEDICATED WITH PRN PERCOCET THIS A.M. PER PT. REQUEST.
--- NOTE | 2019-03-07 16:22 | NUR ---
I have reviewed the documentation by AMARILIS FIERRO from TODAY to 03/07/19 and I concur with it. JOSE LOPEZ
[2019-03-07 19:30] VITALS: BP 152/62
--- NOTE | 2019-03-08 02:45 | NUR ---
ASSUMED CARE @ 1956-03/[birth year]-.AWAKE SITS IN W/C BY WINDOW OF ROOM WATCHING TV.ISOLATION OBSERVED.PRN BENADRYL ORAL GIVEN @ 2158-PER PT'S REQUEST. DRY RASHES ON UE'S BUT REFUSED RN TO CHECK RASHES ON BACK.MANAGER ORANGE APPLIED ANTI- FUNGAL CREAM TO PINK BUTTOCKS.WANTS ONLY SIDERASILS X2 UP.URINAL W/IN REACH.NURSE EMPTIES URINAL @ NIGHT.TURNS SELF @ NIGHT.ORAL FLUIDS LIMITED.ON HOURLY ROUNDS.MANAGER ORANGE DOING ODD HOUR ROUNDS.
--- NOTE | 2019-03-08 05:10 | NUR ---
SLEPT LATE @ 0000-03/08-WED & SLEPT GOOD ALL NIGHT.USED URINAL X2 DURING NIGHT. TOOK ALL ORANGE SHERBET HS SNACKS.
[2019-03-08 08:21] VITALS: BP 134/58
--- NOTE | 2019-03-08 15:39 | NUR ---
TEAM CONFRENCE MEETING HELD TODAY. INFORMED PATIENT OF THE MEETING AND PLAN FOR THE PATIENT TO REMAIN ON THE UNIT AND RE-TEAM NEXT WEEK. PATIENT IN AGREEMENT WITH THE PLAN. PATIENT PROGRESSING TOWARDS GOALS, BUT BARRIERS ARE WOUNDS, BILAT AMPUTEE, AND UPPER BODY STRENGTH. CM WILL REMAIN AVAILABLE TO ASSIST AND FOLLOW NEEDED.
[2019-03-08 20:39] VITALS: BP 131/60
--- NOTE | 2019-03-09 02:04 | NUR ---
ASSUMED CARE @ 1934-03/08-WED.SITS IN W/C BY WINDOW OF ROOM.ISOLATION OBSERVED. STUMP DYSLEXIA TEACHER IN PLACE LEFT STUMP.ELASTIC BANDAGE IN PLACE RIGHT STUMP.PRN BENADRYL 25 MG ONE CAP ORAL GIVEN @ 2143-PER PT'S REQUEST.ORAL FLUIDS LIMITED. REFUSED UREA CREAM TO BACK & ANTI FUNGAL CREAM TO BUTTOCKS @ HS.SBA FOR ALL TRANSFERS W/ GB & SLIDING BOARD.FELL ASLEEP @ 2333-SO DATA CODER OPERATOR SBA PATIENT FROM W/C TO BED.URINAL W/IN REAch.ON HOURLY ROUNDS.DATA CODER OPERATOR DOING ODD HOUR ROUNDS.
--- NOTE | 2019-03-09 05:15 | NUR ---
SLEEPING SINCE 0 & SLEPT GOOD ALL NIGHT.TOOK ALL ORANGE SHERBET HS SNACK.BRP X1 FOR BM.USED URINAL X 3.TURNS SELF @ NIGHT.
[2019-03-09 08:00] VITALS: BP 134/50
--- NOTE | 2019-03-09 15:56 | NUR ---
ASSUMED CARE AT 0730. ALERT ORIENTED PLEASANT COOPERATIVE. HX OF BILATERAL BKA S. DRESSING C/D/I TO RT. STUMP STUMP LEAD CUSTOMER SERVICE REPRESENTATIVE TO L STUMP. TRANSFERS WITH SBA G BELT SLIDING BOARD FROM W/C TO DROP ARM COMMODE HAD BM AND VOIDED ABLE TO DO HYGEINE AND CLOTHING ADJUSTMENTS IN BED. DENIES PAIN BUT DID TAKE A BENADRYL PO THIS A.M. FOR RASH ARMS AND BACK. PARTICIPATING IN THERAPIES THROUGHOUT THE DAY. APPETITE GOOD TAKES MEDS WITHOUT DIFFICULTY. VOIDS PER URINAL CLEAR RADHA URINE. RASH ON BACK IS IMPROVED. USES CALL LIGHT APPROPRIATELY FOR ASSIST.
[2019-03-09 20:00] VITALS: BP 135/61
--- NOTE | 2019-03-10 01:41 | NUR ---
ASSUMED CARE @ 1944-03/09-.APPEARS SLEEPING IN BED.SIDERAILS X2 UP. ISOLATION OBSERVED.BED ALARM ALREADY ON @ 1944.AWAKENED @ 2114 FOR HS MEDS. RIGHT STUMP W/ KAMALA BANDAGE.STUMP PHYSICAL THERAPY TECHNICIAN IN PLACE LEFT STUMP.PRN BENADRYL 25 MG ORAL GIVEN @ 2121-PER PT'S REQUEST.URINAL W/IN REACH.TURNS SELF @ NIGHT.ON HOURLY ROUNDS.VETERINARY BACTERIOLOGIST DOING ODD HOUR ROUNDS.
--- NOTE | 2019-03-10 05:35 | NUR ---
SLEPT EARLY SINCE 1945 & SLEPT GOOD ALL NIGHT.REFUSED HS SNACK.USED URINAL X4 DURING NIGHT.NURSE EMPTIES URINAL @ NIGHT.
[2019-03-10 08:00] VITALS: BP 149/62
--- NOTE | 2019-03-10 12:14 | NUR ---
DR EDWARDS SEEN PATIENT AND STOPPED ABX AND STARTED PREDNISON PO. PATIENT IS REFUSING LUNCH AND STAYING IN HIS ROOM.
--- NOTE | 2019-03-10 12:43 | NUR ---
WOUND NURSE: PATIENT SEEN TO ADDRESS WOUND THE RIGHT BKA. CURRENTLY THE WOUND MEASURES 0.5 X 0.5 X 3.0 CM. THE WOUND EDGES HAVE CLOSED TO A POINT WHERE THE WOUND BED IS NO LONGER VISIBLE. PERIWOUND TISSUE PRESENTS WITH DRY PEELING AND CRUSTY TISSUE AND WITH SMALL SHALLOW EROSIONS. THERE WAS SEROUSANGUINOUS DRAINAGE IRRIGATE OUT OF THE WOUND. THERE WAS NO PACKING IN THE WOUND ITSELF WHEN THE DRESSING WAS REMOVED. CLEANSED THE PERIWOUND AREA WITH SOAP AND WATER, RINSED, THEN PATTED DRY. IRRIGATED OUT THE WOUND BED USING A SMALL CATHETER (MADE FROM AN EXTENTION SET) AND NORMAL SALINE. APPLIED LOTION TO INTACT SKIN. PACKED THE WOUND BED WITH PIECE OF AQUACEL AG, THEN COVERED WITH 4X4'S UNDER ABD UNDER KERLEX ROLL GAUZE UNDER 6 INCH KAMALA WRAP. PATIENT PRESENTS VERY IRRITABLE TODAY COMPLAINING ABOUT A PRURITIC RASH APPEARING ON ENTIRE TRUNK AND EXTREMITIES. PATIENT HAD BEEN PLACED ON ANTIBIOTIC THERAPY IN RELATION TO THE RIGHT BKA WOUND. DR. EDWARDS WAS PAGED BY THE STAFF NURSE CARING FOR THE PATIENT.
--- NOTE | 2019-03-10 15:34 | NUR ---
I have reviewed the documentation by AMARILIS FIERRO from 03/08/19 to 03/10/19 and I concur with it. JOSE LOPEZ
--- NOTE | 2019-03-10 17:53 | NUR ---
ASSUMMED CARE OF PT AT 1400, PT DENIES NEED FOR PAIN MEDICATION, RASH NOTED TO BACK/ARMS, RIGHT STUMP C/D/I, PT STATES DRESSING CHANGED BY WD NURSE TODAY, PROPELS W/C INDEPENDENTLY, HAD DINNER IN DININGROOM, MAINTAINING FLUID RESTRICTIONS, ISOLATION PRECAUTIONS MAINTAINED, HOURLY ROUNDING COMPLETED, WILL CONTINUE TO MONITOR.
[2019-03-10 20:20] VITALS: BP 129/63
--- NOTE | 2019-03-11 05:25 | NUR ---
ASSUMED PT CARE AT 1930. PT ALERT AND ORIENTED X4, POLITE AND COOPERATIVE WITH CARES. DENIES PAIN. RASH TO BACK/ARMS. DRESSING TO RIGHT STUMP C/D/I, DRESSING CHANGED ON DAY SHIFT BY WOUND NURSE. PROPELS WHEELCHAIR INDEPENDENTLY. PT STAYED UP LATE IN WHEELCHAIR WATCHING TELEVISION. TRANSFERS WITH SBA, GAIT BELT AND SLIDE BOARD. ISOLATION PRECAUTIONS IN PLACE. CALL LIGHT AND FREQUENTLY USED ITEMS WITHIN REACH. HOURLY ROUNDING IN PROGRESS, WILL CONTINUE TO MONITOR.
[2019-03-11 08:32] VITALS: BP 149/60
--- NOTE | 2019-03-11 16:33 | NUR ---
PATIENT UP IN WHEELCHAIR THIS SHIFT, REPOSITIONED. CREAM APPLIED TO COCCYX AFTER BM THIS AM. DRESSING CHANGED TO RIGHT STUMP PER ORDERS. PATIENT UP TO BATHROOM AND ABLE TO DRESS LOWER HALF WITH SUPERVISION. VOIDING ADEQUATE AMOUNTS OF YELLOW URINE. REMAINS ON 2000ML FR. NO COMPLAINTS OF PAIN. PATIENT CONTINUES UTILIZING WHEELCHAIR AND SLIDE BOARD.
[2019-03-11 19:57] VITALS: BP 136/49
--- NOTE | 2019-03-12 05:45 | NUR ---
ASSUMED PT CARE AT 1930. PT ALERT AND ORIENTED X4, POLITE AND COOPERATIVE WITH CARES. PT STAYS UP LATE, SITTING UP IN WHEELCHAIR WATCHING TELEVISION. TAKES PILLS WHOLE WITH WATER WITHOUT DIFFICULTY. DENIES PAIN. DRESSINGS TO BILATERAL BKA C/D/I. USES URINAL, STAFF EMPTIES. TRANSFERS WITH SBA, GAIT BELT AND SLIDE BOARD. CALL LIGHT AND FREQUENTLY USED ITEMS WITHIN REACH. HOURLY ROUNDING IN PROGRESS, WILL CONTINUE TO MONITOR.
[2019-03-12 08:01] VITALS: BP 129/78
--- NOTE | 2019-03-12 16:53 | NUR ---
ASSUMED CARE AT 0730. ALERT ORIENTED PLEASANT COOPERATIVE. HX OF BILATERAL BKAS. TRANSFERS WITH SLIDING BOARD AND G BELT FROM BED TO W/C. PROPELLS SELF IN W/C IN ROOM AND TO WEARMagnolia STUMP BLUE CRABBER L STUMP AND KAMALA WRAP TO RT. STUMP DRESSINGS CHANGED AND PICS TAKEN TODAY. DENIES NEED FOR PAIN MEDS OR BENADRYL TODAY. IN CONTACT ISOLATION FOR MRSA AND VRE. VOIDS PER URINAL CLEAR RADHA URINE. SISTER HERE VISITING THIS AFTERNOON. USES CALL LIGHT APPROPRIATELY FOR ASSISTANCE.
[2019-03-12 20:00] VITALS: BP 113/56
--- NOTE | 2019-03-13 02:18 | NUR ---
ASSUMED CARE @ -WEDNESDAY.SITS IN W/C W/ LE'S UP.ON HIS SMART PHONE. URINAL W/IN REACH.ISOLATION OBSERVED.KAMALA BANDAGE INTACT RIGHT STUMP.STUMP PROGRESS WORKER IN PLACE LEFT STUMP.STEPHANIE HELD @ .BP-113/56.NV-51/MIN.SBA TO BED W/ GB & SLIDING BOARD @ 2310.ON HOURLY ROUNDS.COPY CHIEF DOING ODD HOUR ROUNDS. REFUSED TO DO IS & HYDROCORTISONE CREAM.
--- NOTE | 2019-03-13 05:23 | NUR ---
SLEEPING SINCE -03/13-WEDNESDAY & SLEPT GOOD ALL NIGHT.REFUSED HS SNACK.USED URINAL X2.
[2019-03-13 08:08] VITALS: BP 99/52
[2019-03-13 09:30] VITALS: BP 144/85
--- NOTE | 2019-03-13 15:31 | NUR ---
ASSUMED CARE AT 0730. ALERT ORIENTED PLEASANT COOPERATIVE. HX OF BILATERAL BKAS. WEARS STUMP RN INTERN L STUMP. KAMALA WRAP AND DRESSING TO RT. STUMP. PARTICIPATING IN THERAPIES THROUGHOUT THE DAY. DENIES PAIN OR CONCERNS BP WAS LOW THIS A.M. AND LAST EVENING DENIES DIZZINESS OR ISSUES. RECHECKED LATER A.M. AND WAS WITHIN NORMAL LIMITS MEDS WERE GIVEN THEN CARDIZEM TORSEMIDE AND HEART FAILURE MED. USES CALL LIGHT APPROPRIATELY FOR ASSIST. PROPELLS SELF IN W/C.. TRANSFERS WITH SLIDING BOARD AND G BELT TO W/C FROM BED.
--- NOTE | 2019-03-13 16:35 | NUR ---
WOUND NURSE: PATIENT REPORTING HIS DRESSING HAS BEEN CHANGED BY THE VASCULAR NURSE. PATIENT REPORTING THAT PRURITIS IS MUCH BETTER AFTER RECEIVING TREATMENT WITH STEROID. SKIN APPEARS LESS INFLAMED AND RASH IS DRYING UP. WOUND WAS NOT ASSESSED BY THIS NURSE TODAY.
[2019-03-13 19:30] VITALS: BP 122/69
--- NOTE | 2019-03-14 05:31 | NUR ---
ASSUMED PT CARE AT 1930. PT ALERT AND ORIENTED X4, POLITE AND COOPERATIVE WITH CARES. HX OF BILATERAL BKA. DRESSING TO R STUMP C/D/I, COVERED WITH KAMALA WRAP. DENIES PAIN. VITAL SIGNS WNL. PT TRANFERRED TO BED WITH SBA AND SLIDING BOARD. FUNGAL CREAM TO BUTTOCK REDNESS. SLEPT WELL OVERNIGHT. USES CALL LIGHT APPROPRIATELY. CALL LIGHT AND FREQUENTLY USED ITEMS WITHIN REACH. HOURLY ROUNDING IN PROGESS, WILL CONTINUE TO MONITOR.
[2019-03-14 08:00] VITALS: BP 188/77
[2019-03-14 08:30] VITALS: BP 188/77
--- NOTE | 2019-03-14 17:13 | NUR ---
AM ASSESSMENT AND VITAL SIGNS COMPLETED DOCUMENTED. PT HAS BEEN PLEASANT AND COOPERATIVE, WORKS WITH PT AND OT AND CONTINUES TO PROGRESS TOWARD DISCHARGE GOALS. DRESSING TO RIGHT STUMP C/D/I. PT DENIES DISCOMFORT. FALL PRECAUTIONS AND HOURLY ROUNDING CONTINUE.
[2019-03-14 19:30] VITALS: BP 119/70
--- NOTE | 2019-03-15 05:21 | NUR ---
ASSUMED PT CARE AT 1930. PT ALERT AND ORIENTED X4, POLITE AND COOPERATIVE WITH CARES. HX OF BILATERAL BKA. DRESSING TO R STUMP C/D/I. DENIES PAIN. PT PLEASED WITH PROGRESS HE IS MAKING WITH PHYSICAL THERAPY. PT TRANSFERRED TO BED WITH SBA AND SLIDING BOARD. SLEPT WELL OVERNIGHT. USES CALL LIGHT APPROPRIATELY. CALL LIGHT AND FREQUENTLY USED ITEMS WITHIN REACH. HOURLY ROUNDING IN PROGRESS, WILL CONTINUE TO MONITOR.
[2019-03-15 08:32] VITALS: BP 121/62
--- NOTE | 2019-03-15 17:00 | NUR ---
HUONG and Dr Koehler met with pt to review team conference summary and plan for pt to dc home on Wednesday. Pt in agreement with plan. SW to continue to follow to assist with safe dc planning.
--- NOTE | 2019-03-15 18:30 | NUR ---
pt has removed prosthesis to lt leg.skin is intact with no pressure areas noted and dark pink in color. pt to place stump design engineering technician on for night as he does at home.dressing to rt stump changed when here this afternoon with pt placing stunp design engineering technician to it.pt denies pain and remains alert and orientated.
[2019-03-15 19:30] VITALS: BP 119/70
--- NOTE | 2019-03-16 02:59 | NUR ---
ASSUMED CARE @ 1934-03/15-WED.SITS IN W/C BY WINDOW ON HIS ROOM W/ LE'S UP.WATCHING TV.URINAL W/IN REACH.ISOLATION OBSERVED.STUMP LUMP INSPECTOR IN PLACE BOTH STUMPS.ORAL FLUIDS LIMITED.CALLED FOR SBA TRANSFER FROM W/C TO BED W/GB & SLIDING BOARD @ 233.BED ALARM PUT ON @ 233.ANTI FUNGAL CREAM APPLIED TO PINK BUTTOCKS @ 2335.HYDROCORTISONE CREAM APPLIED TO DRY RASHES ON BACK @ HS.TURNS SELF @ NIGHT.ON HOURLY ROUNDS.WAITER/WAITRESS CAPTAIN DOING ODD HOUR ROUNDS.
--- NOTE | 2019-03-16 05:52 | NUR ---
SLEEPING SINCE -03/16-WEDNESDAY & SLEPT GOOD ALL NIGHT.TURNS SELF @ NIGHT.USED URINAL X3.NURSE EMPTIES URINAL @ NIGHT.TOOK ALL ORANGE SHERBET HS SNACK.
[2019-03-16 08:35] VITALS: BP 143/59
--- NOTE | 2019-03-16 14:35 | NUR ---
WOUND NURSE: PATIENT SEEN FOR FOLLOW UP WOUND ASSESSMENT OF RIGHT BKA WOUND. MEASURES 0.5 X 0.5 X 2.5 CM. UNABLE TO VISUALIZE THE WOUND BED DUE TO SMALL DIAMETER, HOWEVER WHEN CHECKED WITH COTTON TIPPED APPLICATOR, SEEMS MORE SHALLOW WITH CLEAR DRAINAGE WHEN IRRIGATED WITH NORMAL SALINE. THERE IS NO PERIWOUND REDNESS, WARMTH, OR INDURATION. HOWEVER WITH THE PERIWOUND IS VERY DRY WITH FLAKING SKIN. PATIENT IS NOW WEARING STUMP LAND SURVEYOR ASSISTANT INSTEAD OF AN KAMALA WRAP. PATIENT DENIES PAIN WHEN ASKED. PATIENT WEARING A PROTECTIVE BORDERED FOAM ON THE LEFT BKA. PATIENT REINSTRUCTED ON MEASURES TO PROMOTE HEALING AND PREVENT FURTHER COMPLICAITONS WITH GOOD UNDERSTANDING ACHIEVED.
--- NOTE | 2019-03-16 17:58 | NUR ---
PT VSS THIS SHIFT AND TOLERATING DIET, RA, AMBULATION USING SLIDEBOARD, AND PAIN CONTROL. PT HAD DRESSING ON R BKA CHANGED BY WOUND RN TODAY AND HIS L BKA ON 03/15 PER DOCUMENTATION. PT HAD ANTIFUNGAL CREAM PLACED ON BUTTOCKS. PT TO D/C TO HOME TOMORROW, PT STATES HE IS READY TO GO HOME. FALL PXN IN PLACE AT THIS TIME. HOURLY ROUNDING MAINTAINED. WILL CONTINUE TO MONITOR AND ASSESS.
[2019-03-16 20:30] VITALS: BP 122/69
--- NOTE | 2019-03-17 01:49 | NUR ---
ASSUMED CARE @ 1939-03/16-.SITS IN W/C W/ LE'S UP BY WINDOW OF ROOM. WATCHING TV.ISOLATION OBSERVED.STUMP SHRINKERS IN PLACE BOTH STUMPS.SBA FOR TRANSFER FROM W/C TO BED W/ GB/SLIDING BOARD @ 2314.TOOK OFF SHORTS @ HS. ANTI-FUNGAL CREAM APPLIED TO PINK BUTTOCKS @ 2314.WANTS SIDERAILS X4 UP. ORAL FLUIDS LIMITED.BED ALARM PUT ON @ 2314.URINAL W/IN REACH.ON HOURLY ROUNDS.FRAMING MANAGER DOING ODD HOUR ROUNDS.TURNS SELF @ NIGHT.
[2019-03-17] MEDS ORDERED: ELIQUIS5 MG PO (02:04)
[2019-03-17] MEDS ORDERED: NEURONTIN 300300 M1 PO (02:31)
[2019-03-17] MEDS ORDERED: HYDROCORTISONE TOP (02:35)
--- NOTE | 2019-03-17 05:30 | NUR ---
TO BED LATE @ 2315.SLEEPING SINCE 0000-03/17-.USED URINAL X2.TOOK ALL ORANGE SHERBET HS SNACK.FOR DISCHARGE TODAY-03/17-WEDNESDAY.
[2019-03-17 08:33] VITALS: BP 149/50
[2019-03-17 12:14] VITALS: BP 149/50
[2019-03-17] MEDS ORDERED: TOUJEO SOL300 UNIT/1 SUBQ (13:13)
[2019-03-17 14:12] VITALS: BP 149/50
--- NOTE | 2019-03-17 14:15 | NUR ---
Pt to dc home today; pt sister to provide pt ride home. Pt to picking machine operator a transfer slide board on his way home; SW discussed with pt and provided resource/referral list. SW discussed OP options and pt choice for OP at [facility], SW called and provided referral, faxed info and order. [phone] fax [phone]. Pt plans to follow up with wound care center; pt expressed being comfortable with the daily dressing changes.
--- NOTE | 2019-03-17 15:08 | NUR ---
ASSUMMED CARE OF PT AT 0730, PT ALERT AND ORIENTED, TRANSFERS WITH SBA, DEBO SLIDE BOARD, STUMP DRESSING CHANGED AFTER SHOWER THIS AM, PT DENIES PAIN, TAKING FOOD AND FLUIDS WELL, PROPELS W/C INDEPENDENTLY, TO DININGROOM FOR LUNCH, PARTICIAPTED IN ALL THERAPIES, ORDERS OBTAINED FOR DISCHARGE, DISCUSSED HOME MEDICATIONS, SCRIPT GIVEN TO FAMILY MEMBER TO BE FILLED, DISCUSSED FOLLOW UP APPTS, CONTACT NUMBER GIVEN TO PT FOR OUTPT PT, DISCUSSED WOUND CARE AND TO FOLLOW UP WITH [facility] ON WEDNESDAY, PT EDUCATED AND SHOWN HOW TO CHANGE DRESSINGS,QUESTIONS ANSWERED, HOURLY ROUNDING COMPLETED, PT DISCHARGED TO MAIN ENTRANCE WITH BELONGINGS BY PHYSICAL THERAPIST.
== END 2019-03-17 14:30 | disposition home or self-care (01) | DRG 948 ==
LOC: M.REH 13:48
PROVIDERS: Specialist; ADMIT Physical Medicine & Rehabilitation
DX: R53.81 Other malaise (principal); I50.32 Chronic diastolic (congestive) heart failure; D68.59 Other primary thrombophilia; I42.9 Cardiomyopathy, unspecified; I48.2 Chronic atrial fibrillation; E11.22 Type 2 diabetes mellitus with diabetic chronic kidney disease; N18.3 Chronic kidney disease, stage 3 (moderate); G47.33 Obstructive sleep apnea (adult) (pediatric); D64.9 Anemia, unspecified; I27.22 Pulmonary hypertension due to left heart disease; L27.0 Generalized skin eruption due to drugs and medicaments taken internally; E11.40 Type 2 diabetes mellitus with diabetic neuropathy, unspecified; Z88.1 Allergy status to other antibiotic agents; Z88.8 Allergy status to other drugs, medicaments and biological substances; Z79.4 Long term (current) use of insulin; Z79.899 Other long term (current) drug therapy; Z89.512 Acquired absence of left leg below knee; Z89.511 Acquired absence of right leg below knee; Z87.891 Personal history of nicotine dependence